=== PATIENT | male | born 1935 | race Caucasian/White ===

== ENCOUNTER 2017-03-09 23:07 | Inpatient (IN) | payer MEDICARE ==
[~2017-03-09] VITALS: Ht 175.3 cm; Wt 82.3 kg
[~2017-03-09 23:07] MED LIST: COUM4TAB7 PO; CRANCAP11 PO; HYDR-2768 PO; KCL10C PO; METO25 PO; NORV10TA PO; ST J81CH PO; TRAM50 PO; WARF2 PO
[2017-03-09 23:09] VITALS: PULSE 82; RESP 20
[2017-03-09] MEDS ORDERED: SODIUM CHLOR 0.9% 1000 ML INJ 1,000 ML IV SCH (23:11)
[2017-03-09] MEDS ORDERED: PANTOPRAZOLE INJ 80 MG in SODIUM CHLORIDE 0.9% INJ 35 ML IV ONE (23:11)
[2017-03-09] MEDS ORDERED: SODIUM CHLORIDE 0.9% FLUSH 10 ML FLUSH IVF PRN (23:15)
[2017-03-09] MEDS ORDERED: ONDANSETRON HCL 4 MG/2 ML VIAL IVP ONE (23:15)
--- NOTE | 2017-03-09 23:17 | PD ---
HPI Chief Complaint: hematemesis Time Seen by Provider: 23:11 Travel History International Travel<30 days: No Contact w/Intl Traveler<30days: No Traveled to known affect area: No History of Present Illness HPI The patient is a 81-year-old male who presents to the emergency department via EMS for hematemesis. The patient started vomiting blood approximately 5 PM per EMS report. 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 The patient notes multiple episodes of vomiting, mostly bright to dark colored blood with visible clots. He does complain of mild lightheadedness and dizziness, denies any chest pain, shortness breath, or abdominal pain. The patient's symptoms are moderate, possibly exacerbated by taking Coumadin, there are no current alleviating factors. EMS does note the patient was hypotensive with a systolic in the 80s prior to arrival, however, they were unable to obtain IV access. PFSH Past Medical History Hx Anticoagulant Therapy: Yes (WARFARIN) Atrial Fibrillation: Yes Cancer: No Cardiovascular Problems: Yes (HTN) Congestive Heart Failure: No Cerebrovascular Accident: Yes (TIA) Diabetes: No Endocrine: No Genitourinary: No Hypertension: Yes Immune Disorder: No Musculoskeletal: Yes Psychiatric: No Reproductive: No Respiratory: No Past Surgical History Other Surgery: Yes Social History Alcohol Use: No Tobacco Use: No Substance Use: No Allergies-Medications (Allergen,Severity, Reaction): Coded Allergies: No Known Allergies (Unverified Allergy, Unknown, 03/10/17) Reported Meds & Prescriptions Reported Meds & Active Scripts Active Metoprolol Tartrate 25 mg (Metoprolol Tartrate) 25 Mg Tab 12.5 Mg PO Q12 Reported Coumadin 4 mg (Warfarin Sodium) Warfarin Sodium 4 mg Tab 4 Mg PO DIRECTED S///S Coumadin (Warfarin Sod) 2 Mg Tab 2 Mg PO DIRECTED // Cranberry (Cranberry-Vitamin C-Vitamin E) Cap 1 Cap PO DAILY Ultram (Tramadol HCl) 50 Mg Tab 50 Mg PO Q6HR FOR PAIN Aspirin 81 mg chewable (Aspirin) 81 Mg Chw 162 Mg PO DAILY Hctz (Hydrochlorothiazide) 25 Mg Tab 25 Mg PO DAILY Norvasc (Amlodipine Besylate) 10 Mg Tab 10 Mg PO DAILY KCl 10 Meq Cap (Potassium Chloride) 10 Meq Capcr 15 Meq PO DIRECTED S/M/W/F Review of Systems Except as stated in HPI: all other systems reviewed are Neg General / Constitutional: No: Fever HENT: Positive: Lightheadedness Cardiovascular: No: Chest Pain or Discomfort Respiratory: No: Shortness of Breath Gastrointestinal: Positive: Nausea, Vomiting, Hematemesis, No: Abdominal Pain Musculoskeletal: Positive: Weakness Neurologic: Positive: Dizziness Physical Exam Narrative GENERAL: Awake, alert, pleasant 81-year-old male who appears his stated age and is in no acute respiratory distress. SKIN: Focused skin assessment warm/dry. HEAD: Atraumatic. Normocephalic. EYES: Pupils equal and round. No scleral icterus. No injection or drainage. ENT: Dry blood in both nares. Dry blood in the posterior oropharynx. NECK: Trachea midline. No JVD. CARDIOVASCULAR: Regular rate and rhythm. No murmur appreciated. RESPIRATORY: No accessory muscle use. Clear to auscultation. Breath sounds equal bilaterally. GASTROINTESTINAL: Abdomen soft, non-tender, nondistended. No rebound tenderness. MUSCULOSKELETAL: No obvious deformities. The right lower extremity is larger than the left lower extremity. The left wrist is flexed. NEUROLOGICAL: Awake and alert. No obvious cranial nerve deficits. The left wrist appears flexed with mild contracture. PSYCHIATRIC: Appropriate mood and affect; insight and judgment normal. Data Data Last Documented VS Vital Signs Date Time Temp Pulse Resp B/P (MAP) Pulse Ox O2 Delivery O2 Flow Rate FiO2 03/09/17 23:23 89 20 126/89 (101) 98 Room Air Orders Orders Complete Blood Count With Diff (03/09/17 23:11) Comprehensive Metabolic Panel (03/09/17 23:11) Prothrombin Time / Inr (Pt) (03/09/17 23:11) Act Partial Throm Time (Ptt) (03/09/17 23:11) Type And Screen (03/09/17 23:11) Chest, Single Ap (03/09/17 23:11) Ecg Monitoring (03/09/17 23:11) Iv Access Insert/Monitor (03/09/17 23:11) Ng Gastric Tube Insert/Monitor (03/09/17 23:11) Orthostatic Vital Signs (03/09/17 23:11) Oximetry (03/09/17 23:11) Ondansetron Inj (Zofran Inj) (03/09/17 23:15) Sodium Chlor 0.9% 1000 Ml Inj (Ns 1000 M (03/09/17 23:11) Sodium Chloride 0.9% Flush (Ns Flush) (03/09/17 23:15) Sodium Chloride 0.9... W/Pantoprazole In (03/09/17 23:11) Sodium Chloride 0.9... W/Pantoprazole In (03/09/17 23:11) Admit Order (Ed Use Only) (03/10/17 01:21) Labs Laboratory Tests Test 03/09/17 23:15 White Blood Count 15.8 TH/MM3 Red Blood Count 3.57 MIL/MM3 Hemoglobin 10.5 GM/DL Hematocrit 33.6 % Mean Corpuscular Volume 94.0 FL Mean Corpuscular Hemoglobin 29.4 PG Mean Corpuscular Hemoglobin Concent 31.3 % Red Cell Distribution Width 14.5 % Platelet Count 204 TH/MM3 Mean Platelet Volume 9.0 FL Neutrophils (%) (Auto) 78.9 % Lymphocytes (%) (Auto) 16.1 % Monocytes (%) (Auto) 4.7 % Eosinophils (%) (Auto) 0.1 % Basophils (%) (Auto) 0.2 % Neutrophils # (Auto) 12.4 TH/MM3 Lymphocytes # (Auto) 2.5 TH/MM3 Monocytes # (Auto) 0.7 TH/MM3 Eosinophils # (Auto) 0.0 TH/MM3 Basophils # (Auto) 0.0 TH/MM3 CBC Comment DIFF FINAL Differential Comment Prothrombin Time 30.3 SEC Prothromb Time International Ratio 2.6 RATIO Activated Partial Thromboplast Time 30.0 SEC Blood Urea Nitrogen 70 MG/DL Creatinine 1.69 MG/DL Random Glucose 196 MG/DL Total Protein 5.6 GM/DL Albumin 2.6 GM/DL Calcium Level 8.0 MG/DL Alkaline Phosphatase 53 U/L Aspartate Amino Transf (AST/SGOT) 16 U/L Alanine Aminotransferase (ALT/SGPT) 20 U/L Total Bilirubin 0.2 MG/DL Sodium Level 143 MEQ/L Potassium Level 4.3 MEQ/L Chloride Level 110 MEQ/L Carbon Dioxide Level 19.7 MEQ/L Anion Gap 13 MEQ/L Estimat Glomerular Filtration Rate 39 ML/MIN MDM Medical Decision Making Medical Screen Exam Complete: Yes Emergency Medical Condition: Yes Medical Record Reviewed: Yes Interpretation(s) Laboratory Tests Test 03/09/17 23:15 White Blood Count 15.8 TH/MM3 Red Blood Count 3.57 MIL/MM3 Hemoglobin 10.5 GM/DL Hematocrit 33.6 % Mean Corpuscular Volume 94.0 FL Mean Corpuscular Hemoglobin 29.4 PG Mean Corpuscular Hemoglobin Concent 31.3 % Red Cell Distribution Width 14.5 % Platelet Count 204 TH/MM3 Mean Platelet Volume 9.0 FL Neutrophils (%) (Auto) 78.9 % Lymphocytes (%) (Auto) 16.1 % Monocytes (%) (Auto) 4.7 % Eosinophils (%) (Auto) 0.1 % Basophils (%) (Auto) 0.2 % Neutrophils # (Auto) 12.4 TH/MM3 Lymphocytes # (Auto) 2.5 TH/MM3 Monocytes # (Auto) 0.7 TH/MM3 Eosinophils # (Auto) 0.0 TH/MM3 Basophils # (Auto) 0.0 TH/MM3 CBC Comment DIFF FINAL Differential Comment Prothrombin Time 30.3 SEC Prothromb Time International Ratio 2.6 RATIO Activated Partial Thromboplast Time 30.0 SEC Blood Urea Nitrogen 70 MG/DL Creatinine 1.69 MG/DL Random Glucose 196 MG/DL Total Protein 5.6 GM/DL Albumin 2.6 GM/DL Calcium Level 8.0 MG/DL Alkaline Phosphatase 53 U/L Aspartate Amino Transf (AST/SGOT) 16 U/L Alanine Aminotransferase (ALT/SGPT) 20 U/L Total Bilirubin 0.2 MG/DL Sodium Level 143 MEQ/L Potassium Level 4.3 MEQ/L Chloride Level 110 MEQ/L Carbon Dioxide Level 19.7 MEQ/L Anion Gap 13 MEQ/L Estimat Glomerular Filtration Rate 39 ML/MIN Differential Diagnosis Differential diagnosis includes hematemesis, peptic ulcer disease, gastritis, coagulopathy, Coumadin toxicity, symptomatic anemia, dehydration, acute renal failure. Narrative Course IV was established, labs are drawn and sent, and the patient was placed on cardiac telemetry monitoring and continuous pulse oximetry monitoring. Type and screen was sent to lab. 2 large-bore IVs were established. The patient was placed on IV fluids, Protonix bolus, and placed on a Protonix drip. NG tube was placed. The patient had minimal return out of the NG tube. The patient's vitals stabilized, systolic was in the 110s to 120s, heart rate was 60s to 70s. No further evidence of continuing bleeding to the NG tube. However , patient is on Coumadin and appeared to have a large amount of hematemesis prior to arrival. Therefore, the patient will be medicine medical service. He may then if it from evaluation by gastroenterology for possible endoscopy. Physician Communication Physician Communication I discussed the patient with Dr. Lott who agrees with admission. Diagnosis Primary Impression: Upper GI bleed Admitting Information Admitting Physician Requests: Admit Condition: Stable Travon Cheung MD Mar 09, 2017 23:17
[2017-03-09 23:23] VITALS: BP 126/89; PULSE 89; RESP 20; O2SAT 98
[2017-03-09] MEDS: PANTOPRAZOLE INJ 80 MG in SODIUM CHLORIDE 0.9% INJ 100 ML IV SCH (23:27)
[2017-03-09 23:33] LABS: AUTOMATED NEUTROPHIL # 12.4 TH/MM3 (1.8-7.7); BASOPHIL % 0.2 % (0.0-2.0); EOSINOPHIL % 0.1 % (0.0-4.0); HEMATOCRIT 33.6 % (39.0-51.0); HEMO FLAGS DIFF FINAL; LYMPH % 16.1 % (9.0-44.0); LYMPHOCYTE # 2.5 TH/MM3 (1.0-4.8); MEAN CORPUSCULAR HEMOGLOBIN 29.4 PG (27.0-34.0); MEAN CORPUSCULAR HGB CONC 31.3 % (32.0-36.0); MONO % 4.7 % (0.0-8.0); NEUT % 78.9 % (16.0-70.0); PLATELET COUNT 204 TH/MM3 (150-450); RED BLOOD COUNT 3.57 MIL/MM3 (4.50-5.90); RED CELL DISTRIBUTION WIDTH 14.5 % (11.6-17.2); WHITE BLOOD COUNT 15.8 TH/MM3 (4.0-11.0)
--- NOTE | 2017-03-09 23:43 | RADRPT ---
EXAM DATE/TIME: 03/09/2017 23:16 [facility] COMPARISON: CHEST SINGLE AP, April 11, 2014, 14:49. INDICATIONS : Shortness of breath. MEDICAL HISTORY : Hypertension. Stroke. SURGICAL HISTORY : None. ENCOUNTER: Initial ACUITY: 1 day PAIN SCORE: 0/10 LOCATION: Bilateral chest FINDINGS: A single view of the chest demonstrates the lungs to be symmetrically aerated without evidence of mas s, infiltrate or effusion. The cardiomediastinal contours are unremarkable. Osseous structures are intact. There is an NG tube in place with the tip directed into the stomach. CONCLUSION: No acute disease. Jeanmarie Nicole MD on March 09, 2017 at 23:39 Board Certified Radiologist. This report was verified electronically.
[2017-03-09 23:44] LABS: ALT (GPT) 20 U/L (12-78); ANION GAP 13 MEQ/L (5-15); AST (GOT) 16 U/L (15-37); BICARBONATE 19.7 MEQ/L (21.0-32.0); BLOOD UREA NITROGEN 70 MG/DL (7-18); CHLORIDE 110 MEQ/L (98-107); GLOMERULAR FILTRATION RATE 39 ML/MIN (>89); POTASSIUM 4.3 MEQ/L (3.5-5.1); SODIUM (NA) 143 MEQ/L (136-145)
[2017-03-09 23:46] LABS: ALKALINE PHOSPHATASE 53 U/L (45-117); TOTAL BILIRUBIN ADULT 0.2 MG/DL (0.2-1.0)
[2017-03-09 23:54] LABS: INTERNATIONAL NORMALIZED RATIO 2.6 RATIO; PROTHROMBIN TIME - PATIENT 30.3 SEC (9.8-11.6)
[2017-03-10] VITALS (16 sets, daily range): BP systolic 81–143; BP diastolic 49–82; PULSE 69–98; RESP 13–30; TEMP 95.8–98.3; O2SAT 97–100
[2017-03-10] MEDS ORDERED: SODIUM CHLORIDE 0.9% FLUSH 10 ML FLUSH IV FLUSH PRN (02:00)
[2017-03-10] MEDS ORDERED: MULTTAB67 PO (03:19)
[2017-03-10] MEDS ORDERED: LISI-515 PO (03:19)
[2017-03-10] MEDS ORDERED: CALC12502 (03:19)
[2017-03-10] MEDS ORDERED: TRAM50TA PO ×3 (03:19)
[2017-03-10] MEDS ORDERED: AMLO5TAB2 PO (03:19)
[2017-03-10] MEDS ORDERED: WARF-20 PO (03:19)
[2017-03-10] MEDS ORDERED: ASPI-516 CHEW (03:19)
[2017-03-10] MEDS ORDERED: CODOIL2 PO (03:19)
[2017-03-10] MEDS ORDERED: WARF4TAB51 PO (03:19)
[2017-03-10] MEDS ORDERED: CRANCAP2 PO (03:19)
[2017-03-10] MEDS ORDERED: FURO1TAB62 PO (03:19)
[2017-03-10] MEDS ORDERED: METO25TA3 PO (03:19)
[2017-03-10] MEDS ORDERED: POTA10CA PO (03:19)
[2017-03-10] MEDS ORDERED: GARL200T2 PO (03:19)
[2017-03-10] MEDS ORDERED: traMADol HCL 50 MG TAB PO PRN (03:45)
[2017-03-10] MEDS ORDERED: ONDANSETRON HCL 4 MG/2 ML VIAL IV PUSH PRN (04:00)
[2017-03-10] MEDS ORDERED: SODIUM CHLOR 0.9% 1000 ML INJ 1,000 ML IV ONE (04:15)
--- NOTE | 2017-03-10 04:29 | HHI.HP ---
[facility] Primary Care Physician Donnie Solis D.O. Admission Diagnosis upper GI bleed on Coumadin, anemia Diagnoses: Travel History International Travel<30 Days: No Contact w/Intl Traveler <30 Da: No Traveled to Known Affected Are: No History of Present Illness 81-year-old male with a past medical history significant for A. fib, anticoagulated on Coumadin, previous TIA, hypertension and degenerative disc disease presents to the emergency department for evaluation of hematemesis. The patient states he started vomiting blood approximately 5 PM. The patient reports multiple episodes of bloody emesis mostly dark with bloody clots. He complains of lightheadedness and dizziness. Denies any chest pain, shortness of breath or abdominal pain. H&H 10.5/33.6 on arrival to the emergency department. BUN/creatinine 70/1.69 (baseline 1.1). INR 2.6. Pulse 89, respiratory rate 20, BP 126/89, pulse ox 98% on room air. Review of Systems Denies fever or chills Denies blurry vision, otorrhea, rhinorrhea Denies sore throat and cough No chest pain, palpitations, shortness of breath No abdominal pain Denies constipation/diarrhea/nausea/vomiting Denies muscle pain/weakness No rashes Past Family Social History Past Medical History A. fib, anticoagulated on Coumadin History of TIA Hypertension Degenerative disc disease Past Surgical History Left knee replacement Ankle surgery in childhood Reported Medications Reported Meds & Active Scripts Active Metoprolol Tartrate 25 mg (Metoprolol Tartrate) 25 Mg Tab 12.5 Mg PO Q12 Reported Calcium (Oyster Shell) 500 Mg Calcium (1250 Mg) Tab Multiple Vitamin 1 Tab 1 Tab PO DAILY Cod Liver Oil 473 Ml Oil 600 Mg PO DAILY Garlic 200 Mg Tab 1,000 Mg PO DAILY Potassium Chloride ER (Potassium Chloride) 10 Meq Cap 10 Meq PO DAILY Lisinopril 20 Mg Tab 20 Mg PO DAILY Tramadol (Tramadol HCl) 50 Mg Tab 50 Mg PO Q4H PRN Tramadol (Tramadol HCl) 50 Mg Tab 50 Mg PO HS PRN Tramadol (Tramadol HCl) 50 Mg Tab 100 Mg PO DAILY PRN Amlodipine (Amlodipine Besylate) 5 Mg Tab 5 Mg PO HS Metoprolol Tartrate 25 Mg Tab 12.5 Mg PO BID Lasix (Furosemide) 20 Mg Tab 20 Mg PO DAILY Cranberry Urinary Comfort (Vitamins C & E) 1 Cap 1 Cap PO BID Warfarin 4 Mg Tab 4 Mg PO DAILY Warfarin 2 Mg Tab 2 Mg PO DAILY Aspirin 81 Mg Chew 81 Mg CHEW DAILY Coumadin 4 mg (Warfarin Sodium) Warfarin Sodium 4 mg Tab 4 Mg PO DIRECTED /// Coumadin (Warfarin Sod) 2 Mg Tab 2 Mg PO DIRECTED // Cranberry (Cranberry-Vitamin C-Vitamin E) Cap 1 Cap PO DAILY Ultram (Tramadol HCl) 50 Mg Tab 50 Mg PO Q6HR FOR PAIN Aspirin 81 mg chewable (Aspirin) 81 Mg Chw 162 Mg PO DAILY Hctz (Hydrochlorothiazide) 25 Mg Tab 25 Mg PO DAILY Norvasc (Amlodipine Besylate) 10 Mg Tab 10 Mg PO DAILY KCl 10 Meq Cap (Potassium Chloride) 10 Meq Capcr 15 Meq PO DIRECTED /// Allergies: Coded Allergies: No Known Allergies (Unverified Allergy, Unknown, 03/10/17) Family History No family history of coronary artery disease or diabetes mellitus Social History Quit smoking 50 years ago. No alcohol the past 3 years. Denies illicit drugs. Physical Exam Vital Signs Vital Signs Date Time Temp Pulse Resp B/P (MAP) Pulse Ox O2 Delivery O2 Flow Rate FiO2 03/10/17 02:44 03/09/17 23:23 89 20 126/89 (101) 98 Room Air 03/09/17 23:23 98 Room Air 03/09/17 23:09 82 20 Physical Exam GENERAL: male lying in bed in moderate distress SKIN: No rashes, ecchymoses or lesions. Cool and dry. HEAD: Atraumatic. Normocephalic. No temporal or scalp tenderness. EYES: Pupils equal round and reactive. Extraocular motions intact. No scleral icterus. No injection or drainage. ENT: Nose without bleeding, purulent drainage or septal hematoma. Throat without erythema, tonsillar hypertrophy or exudate. Uvula midline. Airway patent. NG tube in place draining zoe blood. NECK: Trachea midline. No JVD or lymphadenopathy. Supple, nontender, no meningeal signs. CARDIOVASCULAR: Regular rate and rhythm without murmurs, gallops, or rubs. RESPIRATORY: Clear to auscultation. Breath sounds equal bilaterally. No wheezes , rales, or rhonchi. GASTROINTESTINAL: Abdomen soft, non-tender, nondistended. No hepato-splenomegaly , or palpable masses. No guarding. MUSCULOSKELETAL: Extremities without clubbing, cyanosis, or edema. No joint tenderness, effusion, or edema noted. No calf tenderness. Negative Homans sign bilaterally. NEUROLOGICAL: Awake and alert. Cranial nerves II through XII intact. Motor and sensory grossly within normal limits. Normal speech. Laboratory Laboratory Tests Test 03/09/17 23:15 White Blood Count 15.8 Red Blood Count 3.57 Hemoglobin 10.5 Hematocrit 33.6 Mean Corpuscular Volume 94.0 Mean Corpuscular Hemoglobin 29.4 Mean Corpuscular Hemoglobin Concent 31.3 Red Cell Distribution Width 14.5 Platelet Count 204 Mean Platelet Volume 9.0 Neutrophils (%) (Auto) 78.9 Lymphocytes (%) (Auto) 16.1 Monocytes (%) (Auto) 4.7 Eosinophils (%) (Auto) 0.1 Basophils (%) (Auto) 0.2 Neutrophils # (Auto) 12.4 Lymphocytes # (Auto) 2.5 Monocytes # (Auto) 0.7 Eosinophils # (Auto) 0.0 Basophils # (Auto) 0.0 CBC Comment DIFF FINAL Differential Comment Prothrombin Time 30.3 Prothromb Time International Ratio 2.6 Activated Partial Thromboplast Time 30.0 Blood Urea Nitrogen 70 Creatinine 1.69 Random Glucose 196 Total Protein 5.6 Albumin 2.6 Calcium Level 8.0 Alkaline Phosphatase 53 Aspartate Amino Transf (AST/SGOT) 16 Alanine Aminotransferase (ALT/SGPT) 20 Total Bilirubin 0.2 Sodium Level 143 Potassium Level 4.3 Chloride Level 110 Carbon Dioxide Level 19.7 Anion Gap 13 Estimat Glomerular Filtration Rate 39 Result Diagram: 03/09/17231403/09/172314 Caprini VTE Risk Assessment Caprini VTE Risk Assessment: Mod/High Risk (score >= 2) Caprini Risk Assessment Model Point Value = 1 Point Value = 2 Point Value = 3 Point Value = 5 Age 41-60 Minor surgery BMI > 25 kg/m2 Swollen legs Varicose veins or History of unexplained or recurrent spontaneous Oral contraceptives or hormone replacement Sepsis (< 1 month) Serious lung disease, including pneumonia (< 1 month) Abnormal pulmonary function Acute myocardial infarction Congestive heart failure (< 1 month) History of inflammatory bowel disease Medical patient at bed rest Age 61-74 Arthroscopic surgery Major open surgery (> 45 min) Laparoscopic surgery (> 45 min) Malignancy Confined to bed (> 72 hours) Immobilizing plaster cast Central venous access Age >= 75 History of VTE Family history of VTE Factor V Leiden Prothrombin [id number] Lupus anticoagulant Anticardiolipin antibodies Elevated serum homocysteine Heparin-induced thrombocytopenia Other congenital or acquired thrombophilia Stroke (< 1 month) Elective arthroplasty Hip, pelvis, or leg fracture Acute spinal cord injury (< 1 month) Prophylaxis Regimen Total Risk Factor Score Risk Level Prophylaxis Regimen 0-1 Low Early ambulation 2 Moderate Order ONE of the following: *Sequential Compression Device (SCD) *Heparin 5000 units SQ BID 3-4 Higher Order ONE of the following medications: *Heparin 5000 units SQ TID *Enoxaparin/Lovenox 40 mg SQ daily (WT < 150 kg, CrCl > 30 mL/min) *Enoxaparin/Lovenox 30 mg SQ daily (WT < 150 kg, CrCl > 10-29 mL/min) *Enoxaparin/Lovenox 30 mg SQ BID (WT < 150 kg, CrCl > 30 mL/min) AND/OR *Sequential Compression Device (SCD) 5 or more Highest Order ONE of the following medications: *Heparin 5000 units SQ TID (Preferred with Epidurals) *Enoxaparin/Lovenox 40 mg SQ daily (WT < 150 kg, CrCl > 30 mL/min) *Enoxaparin/Lovenox 30 mg SQ daily (WT < 150 kg, CrCl > 10-29 mL/min) *Enoxaparin/Lovenox 30 mg SQ BID (WT < 150 kg, CrCl > 30 mL/min) AND *Sequential Compression Device (SCD) Assessment and Plan Assessment and Plan 81-year-old male with a past medical history for atrial fibrillation, anticoagulated on Coumadin, history of TIA and hypertension presents with upper GI bleed. 1. Upper GI bleed/hematemesis Patient anticoagulated on Coumadin, INR 2.6 Nothing by mouth Protonix drip Gastroenterology consulted, appreciate recommendations Serial H&H Transfuse when necessary 2. Atrial fibrillation Holding Coumadin for active GI bleed Continue home medications 3. Hypertension Continue home medications 4. CHF Last echo done 04/13/14 showed an EF of 35-40% Gentle IV fluid hydration Monitor for signs of volume overload 5. CHELY BUN/creatinine 70/1.69 Baseline 1.1 IV fluid hydration Follow-up BMP FEN NPO NS at 75 cc/hr Electrolytes: Monitor and replete when necessary Holding pharmacologic anticoagulation secondary to upper GI bleed Case discussed with ER physician at length Patient's blood pressure found to be 70s/40s. He complains of dizziness and lightheadedness. Bolus 1 L normal saline, stat H&H. Follow closely. Transfuse prn. Physician Certification 2 Midnight Certification Type: Admission for Inpatient Services Order for Inpatient Services The services are ordered in accordance with Medicare regulations or non- Medicare payer requirements, as applicable. In the case of services not specified as inpatient-only, they are appropriately provided as inpatient services in accordance with the 2-midnight benchmark. Estimated LOS (days): 2 2 days is the estimated time the patient will need to remain in the hospital, assuming treatment plan goals are met and no additional complications. Post-Hospital Plan: Not yet determined Anastasiya Lott MD Mar 10, 2017 04:29
[2017-03-10] MEDS ORDERED: SODIUM CHLOR 0.9% 1000 ML INJ 1,000 ML IV SCH (04:30)
[2017-03-10 05:02] LABS: HEMATOCRIT 23.4 % (39.0-51.0); REVIEW FLAG FINAL
[2017-03-10] MEDS ORDERED: FUROSEMIDE 20 MG/2 ML VIAL IV PUSH ONE (05:30)
[2017-03-10] MEDS ORDERED: SODIUM CHLOR 0.9% 250 ML INJ 250 ML IV ONE ×2 (05:30→07:15)
[2017-03-10 06:21] LABS: BICARBONATE 25.5 MEQ/L (21.0-32.0); POTASSIUM 4.7 MEQ/L (3.5-5.1)
[2017-03-10 06:35] LABS: CALCIUM-PROTEIN CORRECTED 8.5 MG/DL (8.5-10.1)
--- NOTE | 2017-03-10 07:02 | PD.CONS ---
HPI History of Present Illness This is a 81 year old male who presented to the emergency room for evaluation of hematemesis. He has a history of previous CVA and is currently on chronic anticoagulation with Coumadin. He reports that he takes his medications ( including Coumadin) last night around 5 PM and then went to bed. Around 5:30 he woke up with a small amount of blood in his mouth. Shortly after he started having nausea and vomiting consisting of large amounts of dark red blood and blood clots. He had some associated lower abdominal cramping as though he needed to move his bowels, but states this has since subsided. He has not had any melena or hematochezia. He does have occasional heartburn and reflux and takes Tums as needed. 911 was called and he was brought to the emergency room for further evaluation on the way to the hospital he did have another 3 episodes of hematemesis consisting of large amounts of dark red blood and blood clots. He denies any prior history of GI bleeding, liver disease or cirrhosis, or any history of peptic ulcer disease. He has never had an EGD or colonoscopy. On admission his H&H was 10.5/33.6 and this decreased to 7.5/23.4 at 0445. INR was noted to be 2.6. (Miracle Edgar) PFSH Past Medical History Atrial fibrillation on Coumadin Hx TIA Hypertension Degenerative disc disease Chronic kidney disease Left sided weakness since (born at 7 months) Past Surgical History Left knee replacement Ankle surgery in childhood (Miracle Edgar) Coded Allergies: No Known Allergies (Unverified Allergy, Unknown, 03/10/17) Medications Allergies Coded Allergies Type Severity Reaction Last Updated Verified No Known Allergies Allergy Unknown 03/10/17 No Active Scripts Medications Dose Route/Sig Max Daily Dose Days Date Category Dose Instructions Calcium (Oyster Shell) 500 Mg Calcium (1250 Mg) Tab 03/10/17 Reported Multiple Vitamin 1 Tab 1 Tab PO DAILY 03/10/17 Reported Cod Liver Oil 473 Ml Oil 600 Mg PO DAILY 03/10/17 Reported Garlic 200 Mg Tab 1,000 Mg PO DAILY 03/10/17 Reported Potassium Chloride ER (Potassium Chloride) 10 Meq Cap 10 Meq PO DAILY 03/10/17 Reported Lisinopril 20 Mg Tab 20 Mg PO DAILY 03/10/17 Reported Tramadol (Tramadol HCl) 50 Mg Tab 50 Mg PO Q4H PRN 03/10/17 Reported Tramadol (Tramadol HCl) 50 Mg Tab 50 Mg PO HS PRN 03/10/17 Reported Tramadol (Tramadol HCl) 50 Mg Tab 100 Mg PO DAILY PRN 03/10/17 Reported Amlodipine (Amlodipine Besylate) 5 Mg Tab 5 Mg PO HS 03/10/17 Reported Metoprolol Tartrate 25 Mg Tab 12.5 Mg PO BID 03/10/17 Reported Lasix (Furosemide) 20 Mg Tab 20 Mg PO DAILY 03/10/17 Reported Cranberry Urinary Comfort (Vitamins C & E) 1 Cap 1 Cap PO BID 03/10/17 Reported Warfarin 4 Mg Tab 4 Mg PO DAILY 03/10/17 Reported Warfarin 2 Mg Tab 2 Mg PO DAILY 03/10/17 Reported Aspirin 81 Mg Chew 81 Mg CHEW DAILY 03/10/17 Reported Coumadin 4 mg (Warfarin Sodium) Warfarin Sodium 4 mg Tab 4 Mg PO DIRECTED 11/05/15 Reported S/T//S Coumadin (Warfarin Sod) 2 Mg Tab 2 Mg PO DIRECTED 11/05/15 Reported M/W/F Cranberry (Cranberry-Vitamin C-Vitamin E) Cap 1 Cap PO DAILY 11/05/15 Reported Ultram (Tramadol HCl) 50 Mg Tab 50 Mg PO Q6HR 11/05/15 Reported FOR PAIN Metoprolol Tartrate 25 mg (Metoprolol Tartrate) 25 Mg Tab 12.5 Mg PO Q12 04/13/14 Rx Aspirin 81 mg chewable (Aspirin) 81 Mg Chw 162 Mg PO DAILY 04/11/14 Reported Hctz (Hydrochlorothiazide) 25 Mg Tab 25 Mg PO DAILY 04/11/14 Reported Norvasc (Amlodipine Besylate) 10 Mg Tab 10 Mg PO DAILY 04/11/14 Reported KCl 10 Meq Cap (Potassium Chloride) 10 Meq Capcr 15 Meq PO DIRECTED 04/11/14 Reported S/M/W/F Family History No family history of coronary artery disease or diabetes mellitus Social History Quit smoking 50 years ago. No alcohol the past 3 years. Denies illicit drugs. (Miracle Edgar) Review of Systems Constitutional: COMPLAINS OF: Fatigue, DENIES: Fever, Chills Respiratory: DENIES: Cough Cardiovascular: DENIES: Chest pain Gastrointestinal: COMPLAINS OF: Abdominal pain, Nausea, Vomiting, Heartburn, Hematemesis, DENIES: Black stools, Bloody stools, Constipation, Diarrhea Musculoskeletal: DENIES: Joint pain Neurologic: COMPLAINS OF: Localized weakness, DENIES: Headache Psychiatric: DENIES: Confusion (EdgarMiracle Finley LLOYD) GI Exam Vitals I&O Vital Signs Date Time Temp Pulse Resp B/P (MAP) Pulse Ox O2 Delivery O2 Flow Rate FiO2 03/10/17 06:45 95.8 71 18 103/51 98 03/10/17 05:16 109/53 (71) 03/10/17 04:10 81/49 (60) 03/10/17 03:00 96.7 69 18 88/62 (71) 97 03/10/17 03:00 Room Air 03/10/17 02:44 03/09/17 23:23 89 20 126/89 (101) 98 Room Air 03/09/17 23:23 98 Room Air 03/09/17 23:09 82 20 I/O 03/09/17 03/09/17 03/09/17 03/10/17 03/10/17 03/10/17 07:00 15:00 23:00 07:00 15:00 23:00 Intake Total 2111 ml Balance 2111 ml Intake Oral 0 ml IV Total 2101 ml Blood Product IV Normal Saline Flush 10 ml # Voids 0 # Bowel Movements 0 Imaging Last Impressions Chest X-Ray 03/09/17 2311 Signed Impressions: Service Date/Time: Thursday, March 09, 2017 23:16 - CONCLUSION: No acute disease. Jeanmarie Nicole MD Laboratory Test 03/09/17 23:15 03/10/17 04:45 03/10/17 05:39 White Blood Count 15.8 TH/MM3 Red Blood Count 3.57 MIL/MM3 Hemoglobin 10.5 GM/DL 7.5 GM/DL Hematocrit 33.6 % 23.4 % Mean Corpuscular Volume 94.0 FL Mean Corpuscular Hemoglobin 29.4 PG Mean Corpuscular Hemoglobin Concent 31.3 % Red Cell Distribution Width 14.5 % Platelet Count 204 TH/MM3 Mean Platelet Volume 9.0 FL Neutrophils (%) (Auto) 78.9 % Lymphocytes (%) (Auto) 16.1 % Monocytes (%) (Auto) 4.7 % Eosinophils (%) (Auto) 0.1 % Basophils (%) (Auto) 0.2 % Neutrophils # (Auto) 12.4 TH/MM3 Lymphocytes # (Auto) 2.5 TH/MM3 Monocytes # (Auto) 0.7 TH/MM3 Eosinophils # (Auto) 0.0 TH/MM3 Basophils # (Auto) 0.0 TH/MM3 CBC Comment DIFF FINAL Differential Comment Prothrombin Time 30.3 SEC Prothromb Time International Ratio 2.6 RATIO Activated Partial Thromboplast Time 30.0 SEC Blood Urea Nitrogen 70 MG/DL 72 MG/DL Creatinine 1.69 MG/DL 1.67 MG/DL Random Glucose 196 MG/DL 148 MG/DL Total Protein 5.6 GM/DL 4.5 GM/DL Albumin 2.6 GM/DL Calcium Level 8.0 MG/DL 7.1 MG/DL Alkaline Phosphatase 53 U/L Aspartate Amino Transf (AST/SGOT) 16 U/L Alanine Aminotransferase (ALT/SGPT) 20 U/L Total Bilirubin 0.2 MG/DL Sodium Level 143 MEQ/L 147 MEQ/L Potassium Level 4.3 MEQ/L 4.7 MEQ/L Chloride Level 110 MEQ/L 113 MEQ/L Carbon Dioxide Level 19.7 MEQ/L 25.5 MEQ/L Anion Gap 13 MEQ/L 9 MEQ/L Estimat Glomerular Filtration Rate 39 ML/MIN 39 ML/MIN Protein Corrected Calcium 8.5 MG/DL Physical Examination HEENT: Normocephalic; atraumatic; no jaundice CHEST: CTA CARDIAC: Irregular. Rate controlled. ABDOMEN: Soft, nondistended, nontender; no hepatosplenomegaly; bowel sounds are present in all four quadrants. NGT to LIWS with red blood/clots. EXTREMITIES: Left sided weakness/contractures SKIN: Generalized pallor [employer]ER: Alert and oriented times three. (Miracle Edgar) Assessment and Plan Plan ASSESSMENT: - Upper GI bleed, hematemesis. Pt on coumadin for afib (last took 03/09 at 5pm) . Started having nausea/vomiting with large amounts of red blood and clots last night at 5pm. He had about 3 episodes at home and 3 in the ambulance. 10.5/33.6----> 7.5/23.4. INR 2.6. 2 units of PRBC ordered. NGT to LIWS. He has been hypotensive overnight. HR controlled. Protonix Gtt. - Anemia, acute blood loss. 10.5/33.6----> 7.5/23.4. INR 2.6. On #1/2 PRBC. - Coagulopathy, chronic anticoagulation with Coumadin. Took his coumadin last 03/09 at 5pm. INR 2.6. Give 2 units of FFP and Vitamin K. - CHELY, secondary to blood loss. Creat 1.67. - Atrial fibrillation with hx CVA/TIA. On Coumadin at home. Rate controlled - HTN, Degenerative disc disease, recurrent UTIs. per attending. 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 PLAN: - Transfer to unit for closer observation - Plan for EGD today - Nothing by mouth - NG tube to LIWS - Protonix drip - Hold coumadin - 2 units FFP stat - Vitamin K 10mg sq x 1 - Agree with transfusion (2 units ordered- on first unit) - Monitor H&H - CBC, BMP in a.m. - Notify GI of room number once patient transferred - Notify GI of any change in status - Supportive care - Further recommendations to follow based on results of above - Pt seen and examined by Dr. Peters and myself and this note is written on her behalf (Miracle Edgar) Physician Comments seen, examined agree with above (Ellen Peters MD) Miracle Edgar Mar 10, 2017 07:01 Ellen Peters MD Mar 10, 2017 10:16
[2017-03-10] MEDS ORDERED: PHYTONADIONE 10 MG/ML VIAL SQ ONE (07:15)
[2017-03-10] MEDS ORDERED: METOPROLOL TARTRATE 25 MG TAB PO SCH (09:00)
[2017-03-10] MEDS ORDERED: FUROSEMIDE 20 MG TAB PO SCH (09:00)
[2017-03-10] MEDS ORDERED: POTASSIUM CHLORIDE 10 MEQ CAP PO SCH (09:00)
[2017-03-10] MEDS: PANTOPRAZOLE INJ 80 MG in SODIUM CHLORIDE 0.9% INJ 100 ML IV SCH ×2 (09:11→14:44)
[2017-03-10] MEDS ORDERED: diphenhydrAMINE HCL 50 MG/ML VIAL ONE ×2 (09:59→10:01)
[2017-03-10] MEDS ORDERED: CHLORHEXIDINE GLUCONATE 2 % 1 PACK (2 CLOTHS) TOPICAL PRN (10:00)
[2017-03-10] MEDS ORDERED: POVIDONE IODINE 5% (ANTISEPSIS KIT) 4 APPLICATIONS EACH NARE PRN (10:00)
[2017-03-10] MEDS ORDERED: LACTATED RINGER'S 1000 ML IV PRN (10:00)
[2017-03-10] MEDS ORDERED: METOPROLOL TARTRATE 25 MG TAB PO PRN (10:00)
[2017-03-10] MEDS ORDERED: SODIUM CHLORID 0.9% 500 ML IV PRN (10:00)
--- NOTE | 2017-03-10 10:04 | GIPROC ---
[facility] [address] [facility]. [facility], [address] EGD PROCEDURE REPORT EXAM DATE: 03/10/2017 PATIENT NAME: Burak Weeks MR #: [id number] BIRTHDATE: 1935 ATTENDING: Ellen Peters MD ORDER #: [id number] TELEPHONIC NURSE CASE MANAGER: Felisa Elaine and Nael Hernandez STATUS: inpatient INDICATIONS: The patient is a 81 yr old male here for an EGD due to GI BLEEDING PROCEDURE PERFORMED: EGD w/ biopsy MEDICATIONS: None and Per Anesthesia. TOPICAL ANESTHETIC: none CONSENT: The patient understands the risks and benefits of the procedure and understands that these risks include, but are not limited to: sedation, allergic reaction, infection, perforation and/or bleeding. Alternative means of evaluation and treatment include, among others: physical exam, x-rays, and/or surgical intervention. The patient elects to proceed with this endoscopic procedure. medical equipment was checked for proper function. Hand hygiene and appropriate measures for infection prevention was taken. After the risks, benefits and alternatives of the procedure were thoroughly explained, Informed consent was verified, confirmed and timeout was successfully executed by the treatment team. The patient was anesthetized with topical anesthesia and the Pentax [id number] endoscope was introduced through the mouth and advanced to the second portion of the duodenum. Retroflexed views revealed a hiatal hernia The gastroscope was then slowly withdrawn and removed. Gastritis antrum-biopsy NGT trauma in stomach esophagitis distal esophagus-biopsy. ADVERSE EVENTS: There were no complications. IMPRESSIONS: 1. Gastritis antrum-biopsy NGT trauma in stomach esophagitis distal esophagus-biopsy 2. Retroflexed views revealed a hiatal hernia RECOMMENDATIONS: 1. Await biopsy results. Biopsy results will not be ready for 7-10 days. If you don't hear from us in two weeks, call our office for biopsy results. 2. Anti-reflux regimen 3. Continue PPI 4. Clear liquid diet ppi avoid nsaids monitor hb/ht transfuse prn rash on skin noted during PRBC infusion-, no other symptoms -blood stopped-, Benadryl give, blood bank notofied, work-up ordere as per protocol PATIENT CONDITION: stable DISPOSITION: Inpatient REPEAT EXAM: Return 6 weeks EGD Ellen Peters MD eSigned: Ellen Peters MD 03/10/2017 10:04 AM cc: PATIENT NAME: Burak Weeks MR#: [id number]
[2017-03-10] MEDS: SODIUM CHLORIDE 0.9% FLUSH 10 ML FLUSH IV FLUSH SCH ×2 (10:15→21:00)
[2017-03-10] MEDS ORDERED: DO NOT ADM ANY ANTICOAGULANT DRUGS PRN (10:16)
[2017-03-10] MEDS ORDERED: DIATRIZOATE MEGLUM/DIATRIZOATE SOD 9 ML CUP PO ONE ×2 (12:30→21:45)
--- NOTE | 2017-03-10 13:29 | EKG ---
Date Performed: 03/10/2017 Time Performed: 08:28:32 PTAGE: 81 years EKG: Sinus rhythm LEFT BUNDLE BRANCH BLOCK ABNORMAL ECG PREVIOUS TRACING : 04/11/2014 14.46 Compared to prior electrocardiogram, Sinus rhythm has repla annette atrial fibrillation. DOCTOR: Torsten Wall Interpretating Date/Time 03/10/2017 13:27:38
[2017-03-10 15:11] LABS: AUTOMATED NEUTROPHIL # 13.8 TH/MM3 (1.8-7.7); HEMO FLAGS DIFF FINAL; LYMPH % 10.4 % (9.0-44.0); LYMPHOCYTE # 1.8 TH/MM3 (1.0-4.8); MEAN CELL VOLUME 89.7 FL (80.0-100.0); MEAN CORPUSCULAR HGB CONC 32.3 % (32.0-36.0); MONO % 9.5 % (0.0-8.0); NEUT % 80.1 % (16.0-70.0); PLATELET COUNT 131 TH/MM3 (150-450); RED BLOOD COUNT 2.78 MIL/MM3 (4.50-5.90); RED CELL DISTRIBUTION WIDTH 15.3 % (11.6-17.2); WHITE BLOOD COUNT 17.2 TH/MM3 (4.0-11.0)
[2017-03-10 15:12] LABS: INTERNATIONAL NORMALIZED RATIO 1.8 RATIO
[2017-03-10 15:22] LABS: ALT (GPT) 15 U/L (12-78); AST (GOT) 16 U/L (15-37); BICARBONATE 21.4 MEQ/L (21.0-32.0); BLOOD UREA NITROGEN 63 MG/DL (7-18); GLOMERULAR FILTRATION RATE 47 ML/MIN (>89)
[2017-03-10 16:54] LABS: ANION GAP 12 MEQ/L (5-15); CHLORIDE 119 MEQ/L (98-107); LDH SERUM 175 U/L (87-241); POTASSIUM 4.1 MEQ/L (3.5-5.1); SODIUM (NA) 152 MEQ/L (136-145)
[2017-03-10 16:56] LABS: ALKALINE PHOSPHATASE 38 U/L (45-117); TOTAL BILIRUBIN ADULT 0.3 MG/DL (0.2-1.0)
[2017-03-10 20:51] LABS: HEMATOCRIT 23.2 % (39.0-51.0); REVIEW FLAG FINAL
[2017-03-10] MEDS ORDERED: amLODIPine BESYLATE 5 MG TAB PO SCH (21:00)
[2017-03-11] VITALS (9 sets, daily range): BP systolic 118–170; BP diastolic 55–68; PULSE 61–104; RESP 18–21; TEMP 97.7–99.1; O2SAT 93–98
[2017-03-11] MEDS: PANTOPRAZOLE INJ 80 MG in SODIUM CHLORIDE 0.9% INJ 100 ML IV SCH ×2 (05:10→18:04)
--- NOTE | 2017-03-11 05:20 | RADRPT ---
EXAM DATE/TIME: 03/11/2017 04:42 [facility] COMPARISON: No previous studies available for comparison. INDICATIONS : Abdominal pain with hematemesis. ORAL CONTRAST: Prescribed oral contrast ingested. RADIATION DOSE: 15.35 CTDIvol (mGy) MEDICAL HISTORY : Hypertension. TIA. A Fib. SURGICAL HISTORY : None. Left hip replacement. ENCOUNTER: Initial ACUITY: 2 days PAIN SCALE: 7/10 LOCATION: All quadrants. TECHNIQUE: Volumetric scanning of the abdomen and pelvis was performed. Using automated exposure control and ad justment of the mA and/or kV according to patient size, radiation dose was kept as low as reasonably achievable to obtain optimal diagnostic quality images. DICOM format image data is available electro nically for review and comparison. FINDINGS: LOWER LUNGS: The visualized lower lungs are clear. LIVER: Homogeneous density without lesion. There is no dilation of the biliary tree. No calcified gallston es. SPLEEN: Normal size without lesion. PANCREAS: Within normal limits. KIDNEYS: Normal in size and shape. There is no mass, stone, or hydronephrosis. ADRENAL GLANDS: Within normal limits. VASCULAR: There is no aortic aneurysm. BOWEL/MESENTERY: There are colonic diverticula being most numerous in the sigmoid region. Significant surrounding infl ammatory change is not seen. There is questionable thickening of the transverse and descending colon. Some of this may be secondary to lack of distention. Some degree of colitis in these regions could a lso be considered. Surrounding inflammatory change is not seen in these regions. ABDOMINAL WALL: Within normal limits. RETROPERITONEUM: There is no lymphadenopathy. BLADDER: No wall thickening or mass. REPRODUCTIVE: Within normal limits. INGUINAL: There is no lymphadenopathy or hernia. MUSCULOSKELETAL: There is degenerative change in the lumbar spine. There is a left hip prosthesis. CONCLUSION: 1. Thickening versus lack of distention seen in the transverse and descending colon. Colitis in these regions could be considered. 2. Colonic diverticula with hypertrophy. Significant surrounding inflammatory change is not seen. Jeanmarie Nicole MD on March 11, 2017 at 5:14 Board Certified Radiologist. This report was verified electronically.
[2017-03-11 05:28] LABS: AUTOMATED NEUTROPHIL # 10.8 TH/MM3 (1.8-7.7); BASOPHIL % 0.2 % (0.0-2.0); EOSINOPHIL % 0.3 % (0.0-4.0); HEMATOCRIT 22.8 % (39.0-51.0); HEMO FLAGS DIFF FINAL; INTERNATIONAL NORMALIZED RATIO 1.7 RATIO; LYMPHOCYTE # 1.6 TH/MM3 (1.0-4.8); MEAN CELL VOLUME 89.6 FL (80.0-100.0); MEAN CORPUSCULAR HEMOGLOBIN 30.1 PG (27.0-34.0); MEAN CORPUSCULAR HGB CONC 33.5 % (32.0-36.0); MONO % 8.3 % (0.0-8.0); NEUT % 79.2 % (16.0-70.0); PLATELET COUNT 119 TH/MM3 (150-450); PROTHROMBIN TIME - PATIENT 19.7 SEC (9.8-11.6); RED BLOOD COUNT 2.54 MIL/MM3 (4.50-5.90); RED CELL DISTRIBUTION WIDTH 15.6 % (11.6-17.2); WHITE BLOOD COUNT 13.6 TH/MM3 (4.0-11.0)
[2017-03-11 05:38] LABS: POTASSIUM 3.7 MEQ/L (3.5-5.1)
[2017-03-11 06:04] LABS: CALCIUM-PROTEIN CORRECTED 8.5 MG/DL (8.5-10.1)
[2017-03-11] MEDS: SODIUM CHLORIDE 0.9% FLUSH 10 ML FLUSH IV FLUSH SCH ×2 (09:00→21:00)
[2017-03-11 19:47] LABS: AUTOMATED NEUTROPHIL # 6.3 TH/MM3 (1.8-7.7); BASOPHIL % 0.3 % (0.0-2.0); EOSINOPHIL # 0.1 TH/MM3 (0-0.4); EOSINOPHIL % 0.8 % (0.0-4.0); LYMPH % 15.5 % (9.0-44.0); LYMPHOCYTE # 1.3 TH/MM3 (1.0-4.8); MEAN CELL VOLUME 90.7 FL (80.0-100.0); MEAN CORPUSCULAR HEMOGLOBIN 29.8 PG (27.0-34.0); MEAN CORPUSCULAR HGB CONC 32.8 % (32.0-36.0); MONO % 7.3 % (0.0-8.0); NEUT % 76.1 % (16.0-70.0); PLATELET COUNT 110 TH/MM3 (150-450); RED BLOOD COUNT 2.15 MIL/MM3 (4.50-5.90); RED CELL DISTRIBUTION WIDTH 15.6 % (11.6-17.2); WHITE BLOOD COUNT 8.3 TH/MM3 (4.0-11.0)
[2017-03-11 19:52] LABS: HEMO FLAGS DIFF FINAL
[2017-03-11 19:54] LABS: HEMATOCRIT 19.5 % (39.0-51.0)
--- NOTE | 2017-03-11 20:12 | PD.CONS ---
[facility] Service Critical Care Medicine Consult Requested By Primary Care Physician Donnie Solis D.O. History of Present Illness 81-year-old male with a past medical history significant for A. fib, anticoagulated on Coumadin, previous TIA, hypertension and degenerative disc disease presents to the emergency department for evaluation of hematemesis. He underwent EGD by gastroenterology with findings of hiatal hernia and gastritis. Recommendations were to admit to ICU for observation overnight with anti- reflex medications. The biopsy results that was performed during the procedure will be discussed with the patient as an outpatient in 2 weeks. Review of Systems Constitutional: DENIES: Diaphoretic episodes, Fatigue, Fever, Weight gain, Weight loss, Chills, Dizziness, Change in appetite, Night Sweats Endocrine: DENIES: Heat/cold intolerance, Polydipsia, Polyuria, Polyphagia Eyes: DENIES: Blurred vision, Diplopia, Eye inflammation, Eye pain, Vision loss , Photosensitivity, Double Vision Ears, nose, mouth, throat: DENIES: Tinnitus, Hearing loss, Vertigo, Nasal discharge, Oral lesions, Throat pain, Hoarseness, Ear Pain, Running Nose, Epistaxis, Sinus Pain, Toothache, Odynophagia Respiratory: DENIES: Apneas, Cough, Snoring, Wheezing, Hemoptysis, Sputum production, Shortness of breath Cardiovascular: DENIES: Chest pain, Palpitations, Syncope, Dyspnea on Exertion , PND, Lower Extremity Edema, Orthopnea, Claudication Gastrointestinal: COMPLAINS OF: Vomiting, DENIES: Abdominal pain, Black stools , Bloody stools, Constipation, Diarrhea, Nausea, Difficulty Swallowing, Anorexia Genitourinary: DENIES: Sexual dysfunction, Urinary frequency, Urinary incontinence, Urgency, Hematuria, Dysuria, Nocturia, Penile Discharge, Testicular Pain, Testicular Swelling Musculoskeletal: DENIES: Joint pain, Muscle aches, Stiffness, Joint Swelling, Back pain, Neck pain Integumentary: DENIES: Abnormal pigmentation, Nail changes, Pruritus, Rash Hematologic/lymphatic: DENIES: Bruising, Lymphadenopathy Immunologic/allergic: DENIES: Eczema, Urticaria Neurologic: DENIES: Abnormal gait, Headache, Localized weakness, Paresthesias, Seizures, Speech Problems, Tremor, Poor Balance Psychiatric: DENIES: Anxiety, Confusion, Mood changes, Depression, Hallucinations, Agitation, Suicidal Ideation, Homicidal Ideation, Delusions Past Family Social History Allergies: Coded Allergies: No Known Allergies (Unverified Allergy, Unknown, 03/10/17) Past Medical History A. fib, anticoagulated on Coumadin History of TIA Hypertension Degenerative disc disease Past Surgical History Left knee replacement Ankle surgery in childhood Reported Medications Reported Meds & Active Scripts Active Metoprolol Tartrate 25 mg (Metoprolol Tartrate) 25 Mg Tab 12.5 Mg PO Q12 Reported Calcium (Oyster Shell) 500 Mg Calcium (1250 Mg) Tab Multiple Vitamin 1 Tab 1 Tab PO DAILY Cod Liver Oil 473 Ml Oil 600 Mg PO DAILY Garlic 200 Mg Tab 1,000 Mg PO DAILY Potassium Chloride ER (Potassium Chloride) 10 Meq Cap 10 Meq PO DAILY Lisinopril 20 Mg Tab 20 Mg PO DAILY Tramadol (Tramadol HCl) 50 Mg Tab 50 Mg PO Q4H PRN Tramadol (Tramadol HCl) 50 Mg Tab 50 Mg PO HS PRN Tramadol (Tramadol HCl) 50 Mg Tab 100 Mg PO DAILY PRN Amlodipine (Amlodipine Besylate) 5 Mg Tab 5 Mg PO HS Metoprolol Tartrate 25 Mg Tab 12.5 Mg PO BID Lasix (Furosemide) 20 Mg Tab 20 Mg PO DAILY Cranberry Urinary Comfort (Vitamins C & E) 1 Cap 1 Cap PO BID Warfarin 4 Mg Tab 4 Mg PO DAILY Warfarin 2 Mg Tab 2 Mg PO DAILY Aspirin 81 Mg Chew 81 Mg CHEW DAILY Coumadin 4 mg (Warfarin Sodium) Warfarin Sodium 4 mg Tab 4 Mg PO DIRECTED /// Coumadin (Warfarin Sod) 2 Mg Tab 2 Mg PO DIRECTED // Cranberry (Cranberry-Vitamin C-Vitamin E) Cap 1 Cap PO DAILY Ultram (Tramadol HCl) 50 Mg Tab 50 Mg PO Q6HR FOR PAIN Aspirin 81 mg chewable (Aspirin) 81 Mg Chw 162 Mg PO DAILY Hctz (Hydrochlorothiazide) 25 Mg Tab 25 Mg PO DAILY Norvasc (Amlodipine Besylate) 10 Mg Tab 10 Mg PO DAILY KCl 10 Meq Cap (Potassium Chloride) 10 Meq Capcr 15 Meq PO DIRECTED S/// Active Ordered Medications Current Medications Medications (Trade) Dose Ordered Sig/Fany Route PRN Reason Start Time Stop Time Status Last Admin Dose Admin Pantoprazole Sodium 80 mg/ Sodium Chloride 100 ml @ 10 mls/hr Q10H IV 03/09/17 23:11 03/11/17 18:04 Sodium Chloride (NS Flush) 2 ml UNSCH PRN IV FLUSH FLUSH AFTER USING IV ACCESS 03/10/17 02:00 Sodium Chloride (NS Flush) 2 ml BID IV FLUSH 03/10/17 09:00 03/10/17 21:00 Amlodipine Besylate (Norvasc) 5 mg HS PO 03/10/17 21:00 Future Hold Furosemide (Lasix) 20 mg DAILY PO 03/10/17 09:00 Future Hold Metoprolol Tartrate (Lopressor) 12.5 mg BID PO 03/10/17 09:00 Future Hold Potassium Chloride (KCl) 10 meq DAILY PO 03/10/17 09:00 Future Hold Tramadol HCl (Ultram) 50 mg Q4H PRN PO PAIN 03/10/17 03:45 Future Hold Ondansetron HCl (Zofran Inj) 4 mg Q6HR PRN IV PUSH NAUSEA OR VOMITING 03/10/17 04:00 Lactated Ringer's 1,000 ml @ 30 mls/hr Q24H PRN IV SEE LABEL COMMENTS 03/10/17 10:00 03/13/17 09:59 Sodium Chloride 500 ml @ 30 mls/hr [id number] PRN IV SEE LABEL COMMENTS 03/10/17 10:00 03/13/17 09:59 Metoprolol Tartrate (Lopressor) 25 mg [employer] PRN PO SEE LABEL COMMENTS 03/10/17 10:00 03/13/17 09:59 Povidone Iodine (Betadine 5% Antisepsis Kit) 1 applic [employer] PRN EACH NARE SEE LABEL COMMENTS 03/10/17 10:00 03/13/17 09:59 Chlorhexidine Gluconate (Chlorhexidine 2% Cloth) 3 pack [employer] PRN TOPICAL SEE LABEL COMMENTS 03/10/17 10:00 03/13/17 09:59 Family History No family history of coronary artery disease or diabetes mellitus Social History Quit smoking 50 years ago. No alcohol the past 3 years. Denies illicit drugs. Physical Exam Vital Signs Vital Signs Date Time Temp Pulse Resp B/P (MAP) Pulse Ox O2 Delivery O2 Flow Rate FiO2 03/11/17 16:00 97.7 104 20 127/55 (79) 95 03/11/17 15:00 81 03/11/17 12:00 98.8 79 20 129/68 (88) 97 03/11/17 08:00 99.1 80 20 147/57 (87) 97 03/11/17 07:00 98 Room Air 03/11/17 07:00 86 03/11/17 04:00 98.9 84 20 118/64 (82) 97 03/11/17 00:00 98.4 80 18 143/63 (89) 98 03/10/17 23:00 76 Physical Exam GENERAL: Elderly appearing male lying in bed in moderate distress SKIN: No rashes, ecchymoses or lesions. Cool and dry. HEAD: Atraumatic. Normocephalic. No temporal or scalp tenderness. EYES: Pupils equal round and reactive. Extraocular motions intact. No scleral icterus. No injection or drainage. ENT: Nose without bleeding, purulent drainage or septal hematoma. Throat without erythema, tonsillar hypertrophy or exudate. Uvula midline. Airway patent. NG tube in place draining zoe blood. NECK: Trachea midline. No JVD or lymphadenopathy. Supple, nontender, no meningeal signs. CARDIOVASCULAR: Regular rate and rhythm without murmurs, gallops, or rubs. RESPIRATORY: Clear to auscultation. Breath sounds equal bilaterally. No wheezes , rales, or rhonchi. GASTROINTESTINAL: Abdomen soft, non-tender, nondistended. No hepato-splenomegaly , or palpable masses. No guarding. MUSCULOSKELETAL: Extremities without clubbing, cyanosis, or edema. No joint tenderness, effusion, or edema noted. No calf tenderness. Negative Homans sign bilaterally. NEUROLOGICAL: Awake and alert. Cranial nerves II through XII intact. Motor and sensory grossly within normal limits. Normal speech. Laboratory Laboratory Tests Test 03/11/17 04:25 03/11/17 18:59 White Blood Count 13.6 8.3 Red Blood Count 2.54 2.15 Hemoglobin 7.7 6.4 Hematocrit 22.8 19.5 Mean Corpuscular Volume 89.6 90.7 Mean Corpuscular Hemoglobin 30.1 29.8 Mean Corpuscular Hemoglobin Concent 33.5 32.8 Red Cell Distribution Width 15.6 15.6 Platelet Count 119 110 Mean Platelet Volume 8.8 8.8 Neutrophils (%) (Auto) 79.2 76.1 Lymphocytes (%) (Auto) 12.0 15.5 Monocytes (%) (Auto) 8.3 7.3 Eosinophils (%) (Auto) 0.3 0.8 Basophils (%) (Auto) 0.2 0.3 Neutrophils # (Auto) 10.8 6.3 Lymphocytes # (Auto) 1.6 1.3 Monocytes # (Auto) 1.1 0.6 Eosinophils # (Auto) 0.0 0.1 Basophils # (Auto) 0.0 0.0 CBC Comment DIFF FINAL DIFF FINAL Differential Comment Prothrombin Time 19.7 Prothromb Time International Ratio 1.7 Blood Urea Nitrogen 41 Creatinine 1.21 Random Glucose 108 Total Protein 5.2 Calcium Level 7.4 Sodium Level 149 Potassium Level 3.7 Chloride Level 116 Carbon Dioxide Level 25.0 Anion Gap 8 Estimat Glomerular Filtration Rate 57 Protein Corrected Calcium 8.5 Result Diagram: 03/11/17 1859 03/11/17 0425 Assessment and Plan Assessment and Plan Upper GI bleed/hematemesis - Hemorrhagic gastritis - Continue Protonix IV twice a day - Gastroenterology appreciated - Serial H&H - Transfuse for hemoglobin less than 7 Atrial fibrillation - Holding Coumadin - Rate controlled - Resume metoprolol when hemodynamically stable - Resume Coumadin when okay by GI Hypertension - Currently normotensive - Hold diuretics while in the ICU - Resume metoprolol and Norvasc when blood pressure stable CHF - Last echo done 04/13/14 showed an EF of 35-40% - While nothing by mouth Gentle IV fluid hydration - Monitor for signs of volume overload CHELY - BUN/creatinine 70/1.69 on admission - Baseline 1.1 - IV fluid hydration - Monitor electrolytes and creatinine as well as urine output DVT GI prophylaxis - Teds SCDs - Protonix IV twice a day - Pharmacological DVT prophylaxis due to GI bleed Critical Care: The total critical care time was 35 minutes. Time to perform other separately billable procedures was not included in the critical care time. Jae Baltazar MD Mar 11, 2017 8:12 pm
[2017-03-11] MEDS ORDERED: diphenhydrAMINE HCL 50 MG/ML VIAL IM PRN (20:15)
[2017-03-11] MEDS: PANTOPRAZOLE SODIUM 40 MG VIAL IV PUSH SCH (23:46)
[2017-03-12] VITALS (13 sets, daily range): BP systolic 112–129; BP diastolic 51–73; PULSE 48–108; RESP 17–29; TEMP 95.7–98.7; O2SAT 91–99
[2017-03-12 01:40] LABS: BICARBONATE 25.9 MEQ/L (21.0-32.0); POTASSIUM 3.5 MEQ/L (3.5-5.1)
[2017-03-12 02:12] LABS: CALCIUM-PROTEIN CORRECTED 8.6 MG/DL (8.5-10.1)
[2017-03-12] MEDS ORDERED: MAGNESIUM CITRATE SOLN 300 ML BTL PO ONE (07:30)
--- NOTE | 2017-03-12 07:42 | HHI.GIFU ---
Subjective Remarks Resting in bed. Had 4 bloody stools with dark maroon colored blood yesterday. HH dropped last night and he received 2 units of blood. No further bleeding so far today. (Miracle Edgar) Objective Vitals I&O Vital Signs Date Time Temp Pulse Resp B/P (MAP) Pulse Ox O2 Delivery O2 Flow Rate FiO2 03/12/17 04:00 98.3 48 17 116/55 (75) 91 03/12/17 02:03 98.4 03/12/17 01:48 98.3 03/12/17 00:57 98.5 03/12/17 00:05 98.2 03/12/17 00:00 98.7 70 20 122/51 (74) 95 03/11/17 23:00 61 03/11/17 20:00 98.7 86 21 170/67 (101) 93 03/11/17 16:00 97.7 104 20 127/55 (79) 95 03/11/17 15:00 81 03/11/17 12:00 98.8 79 20 129/68 (88) 97 03/11/17 08:00 99.1 80 20 147/57 (87) 97 I/O 03/11/17 03/11/17 03/11/17 03/12/17 03/12/17 03/12/17 07:00 15:00 23:00 07:00 15:00 23:00 Intake Total 1060 ml 1225 ml 1720 ml Output Total 654 ml 754 ml 750 ml Balance 406 ml 471 ml 970 ml Intake Oral 960 ml 1180 ml 120 ml IV Total 100 ml 45 ml Packed Cells 800 ml Blood Product IV Normal Saline Flush 800 ml Output Urine Total 650 ml 750 ml 750 ml Stool Total 4 ml 4 ml # Bowel Movements 1 Laboratory Laboratory Tests Test 03/11/17 18:59 03/12/17 00:27 White Blood Count 8.3 Red Blood Count 2.15 Hemoglobin 6.4 Hematocrit 19.5 Mean Corpuscular Volume 90.7 Mean Corpuscular Hemoglobin 29.8 Mean Corpuscular Hemoglobin Concent 32.8 Red Cell Distribution Width 15.6 Platelet Count 110 Mean Platelet Volume 8.8 Neutrophils (%) (Auto) 76.1 Lymphocytes (%) (Auto) 15.5 Monocytes (%) (Auto) 7.3 Eosinophils (%) (Auto) 0.8 Basophils (%) (Auto) 0.3 Neutrophils # (Auto) 6.3 Lymphocytes # (Auto) 1.3 Monocytes # (Auto) 0.6 Eosinophils # (Auto) 0.1 Basophils # (Auto) 0.0 CBC Comment DIFF FINAL Differential Comment Blood Urea Nitrogen 20 Creatinine 0.94 Random Glucose 98 Total Protein 4.9 Calcium Level 7.4 Sodium Level 149 Potassium Level 3.5 Chloride Level 117 Carbon Dioxide Level 25.9 Anion Gap 6 Estimat Glomerular Filtration Rate 77 Protein Corrected Calcium 8.6 Imaging Last Impressions Abdomen/Pelvis CT 03/10/17 0000 Signed Impressions: Service Date/Time: February 04:42 - CONCLUSION: 1. Thickening versus lack of distention seen in the transverse and descending colon. Colitis in these regions could be considered. 2. Colonic diverticula with hypertrophy. Significant surrounding inflammatory change is not seen. Jeanmarie Nicole MD Chest X-Ray 03/09/17 2311 Signed Impressions: Service Date/Time: Thursday, March 09, 2017 23:16 - CONCLUSION: No acute disease. Jeanmarie Nicole MD Physical Exam HEENT: Normocephalic; atraumatic; no jaundice. CHEST: CTA CARDIAC: Irregular ABDOMEN: Soft, nondistended, nontender; no hepatosplenomegaly; bowel sounds are present in all four quadrants. EXTREMITIES: Left sided weakness/contractures SKIN: Normal; no rash; no jaundice. MOTTLER OPERATOR: Alert and oriented, (Miracle Edgar) Assessment and Plan Plan ASSESSMENT: - GIB. hematemesis, hematochezia. Pt on coumadin for afib (last took 03/09 at 5pm). Started having nausea/vomiting with large amounts of red blood and clots last night at 5pm. S/P EGD (03/10/17)----> 1. Gastritis antrum- biopsy NGT trauma in stomach esophagitis distal esophagus-biopsy 2. Retroflexed views revealed a hiatal hernia. No further hematemesis. CT Scan abdomen and pelvis without IV contrast (03/11/17)---> Thickening versus lack of distention seen in the transverse and descending colon. Colitis in these regions could be considered. Colonic diverticula with hypertrophy. Significant surrounding inflammatory change is not seen. Nurse reports that he had 4 bloody bowel movements yesterday with dark maroon blood. HH dropped 6.4/19.5. Received 2 units PRBC overnight. Protonix 40mg IV BID. - Anemia, acute blood loss. S/P 4 units of blood. HH dropped last night to 6.4 /19.5. Received 2 units of PRBC, has not been rechecked this am. - Possible colitis. CT with thickening vs. lack of distention seen in transverse and descending colon. Send for CDiff. - Coagulopathy, chronic anticoagulation with Coumadin. Took his coumadin last 03/09 at 5pm. INR 2.6. Give 2 units of FFP and Vitamin K. - CHELY, secondary to blood loss. Labs today - Atrial fibrillation with hx CVA/TIA. On Coumadin at home. Rate controlled - HTN, Degenerative disc disease, recurrent UTIs. per attending. 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 PLAN: - NPO except meds - Stat bleeding scan - Stat CBC, CMP - H/H q6h - Transfuse as necessary - Protonix with BID dosing - Hold Coumadin - Magnesium Citrate x 1 - Monitor H&H - CBC, BMP in a.m. - Supportive care - Further recommendations to follow based on results of above - Possible flexible sigmoidoscopy later in day depending on results of above - Pt seen and examined by Dr. Peters and myself and this note is written on her behalf (Miracle Edgar) Physician Comments gi bleeding scan negative clear liquids colonoscopy if further drop in hb (Ellen Peters MD) Miracle Egdar Mar 12, 2017 07:42 Ellen Peters MD Mar 12, 2017 19:27
[2017-03-12] MEDS: SODIUM CHLORIDE 0.9% FLUSH 10 ML FLUSH IV FLUSH SCH ×2 (08:24→20:35)
[2017-03-12 09:15] LABS: AUTOMATED NEUTROPHIL # 7.8 TH/MM3 (1.8-7.7); BASOPHIL % 0.3 % (0.0-2.0); EOSINOPHIL # 0.1 TH/MM3 (0-0.4); EOSINOPHIL % 1.2 % (0.0-4.0); HEMATOCRIT 34.4 % (39.0-51.0); HEMO FLAGS DIFF FINAL; LYMPH % 16.3 % (9.0-44.0); LYMPHOCYTE # 1.8 TH/MM3 (1.0-4.8); MEAN CELL VOLUME 89.3 FL (80.0-100.0); MEAN CORPUSCULAR HEMOGLOBIN 29.7 PG (27.0-34.0); MEAN CORPUSCULAR HGB CONC 33.3 % (32.0-36.0); MONO % 9.3 % (0.0-8.0); NEUT % 72.9 % (16.0-70.0); PLATELET COUNT 132 TH/MM3 (150-450); RED BLOOD COUNT 3.85 MIL/MM3 (4.50-5.90); RED CELL DISTRIBUTION WIDTH 15.3 % (11.6-17.2); WHITE BLOOD COUNT 10.8 TH/MM3 (4.0-11.0)
--- NOTE | 2017-03-12 13:29 | RADRPT ---
EXAM DATE/TIME: 03/12/2017 09:36 [facility] COMPARISON: No previous studies available for comparison. INDICATIONS : Rectal bleed DOSE: 21.3 mCi Tc99m Ultratag labeled red blood cells IV IMAGIN hrs MEDICAL HISTORY : Hypertension. Cerebrovascular disease. Afib. TIA SURGICAL HISTORY : Total knee replacement, left. Hip. ENCOUNTER: Initial ACUITY: 1 day PAIN SCALE: 0/10 LOCATION: Bilateral lower quadrant TECHNIQUE: Following the modified in vitro labeling of autologous red cells, dynamic continuous images were acqu ired for the specified interval. FINDINGS: BIODISTRIBUTION: There is a very good labeling of red cells without significant uptake in the gastric wall. There is good delineation of the blood pool of the spleen and abdominal vessels. BLEEDING: No episodes of active GI bleeding are observed during specified interval of continuous observation. CONCLUSION: 1. No active GI bleed identified. Andres Montenegro MD on March 12, 2017 at 13:26 Board Certified Radiologist. This report was verified electronically.
--- NOTE | 2017-03-12 13:34 | HHI.CCPN ---
Subjective Remarks/Hospital Course 81-year-old male with a past medical history significant for A. fib, anticoagulated on Coumadin, previous TIA, hypertension and degenerative disc disease presents to the emergency department for evaluation of hematemesis. He underwent EGD by gastroenterology with findings of hiatal hernia and gastritis. Recommendations were to admit to ICU for observation overnight with anti- reflex medications. The biopsy results that was performed during the procedure will be discussed with the patient as an outpatient in 2 weeks. 03/12: Stable Hgb and BP today. CHELY resolved. Tag cell study negative, GI appears to plan sigmoidoscopy. We will keep him on clear liquids. Objective Vital Signs Date Time Temp Pulse Resp B/P (MAP) Pulse Ox O2 Delivery O2 Flow Rate FiO2 03/12/17 04:00 98.3 48 17 116/55 (75) 91 03/11/17 07:00 Room Air 03/10/17 10:45 2 Intake and Output 03/12/17 03/12/17 03/13/17 08:00 16:00 00:00 Intake Total 1470 ml Output Total 750 ml Balance 720 ml Result Diagram: 03/12/17 0850 03/12/17 0027 Objective Remarks GENERAL: Elderly appearing male. HEAD: Atraumatic. Normocephalic. EYES: Pupils equal round and reactive. Extraocular motions intact. No scleral icterus. No injection or drainage. NECK: Trachea midline. Supple, nontender, no meningeal signs. Airway widely patent. CARDIOVASCULAR: Irreg, Irreg. No gallops, or rubs. No JVD. RESPIRATORY: Clear. Breath sounds equal bilaterally. No wheezes, rales, or rhonchi. GASTROINTESTINAL: Abdomen soft, non-tender, nondistended. No guarding. BS active. MUSCULOSKELETAL: Extremities without clubbing, cyanosis, or edema. Well perfused. NEUROLOGICAL: Awake and alert. Motor and sensory grossly within normal limits. Normal speech. Conversant. A/P Assessment and Plan Upper GI bleed/hematemesis - Hemorrhagic gastritis - Continue Protonix IV twice a day - Gastroenterology appreciated - Serial H&H - Transfuse for hemoglobin less than 7 Atrial fibrillation - Holding Coumadin - Rate controlled - Resume metoprolol when hemodynamically stable - Resume Coumadin when okay by GI Hypertension - Currently normotensive - Hold diuretics while in the ICU - Resume metoprolol and Norvasc when blood pressure stable CHF - Last echo done 04/13/14 showed an EF of 35-40% - While nothing by mouth Gentle IV fluid hydration - Monitor for signs of volume overload CHELY - BUN/creatinine 70/1.69 on admission - Baseline 1.1 - IV fluid hydration - Monitor electrolytes and creatinine as well as urine output DVT GI prophylaxis - Teds SCDs - Protonix IV twice a day - Pharmacological DVT prophylaxis due to GI bleed Overall impression: Acceptable hemodynamics. Tagged red cell study today to locate source. Karan Price MD Mar 12, 2017 13:34
[2017-03-12] MEDS: PANTOPRAZOLE SODIUM 40 MG VIAL IV PUSH SCH ×2 (13:59→22:07)
--- NOTE | 2017-03-12 16:44 | EKG ---
Date Performed: 03/11/2017 Time Performed: 23:23:38 PTAGE: 81 years EKG: Sinus rhythm with bigeminal PVCs with 1st degree A-V block. Possible right atrial abnormality Left bundle branch block Possible inferior infarct - age undetermined Anteroseptal ST-T changes suggest myocardial injur y/ischemia Abnormal ECG Compared to PREVIOUS TRACING , the patient is now having bigeminal PVCs. PREVIOUS TRACING 03/10/2017 08.28.32 DOCTOR: Aracelis Osborn Interpretating Date/Time 03/12/2017 16:44:12
[2017-03-12 18:50] LABS: HEMATOCRIT 28.6 % (39.0-51.0)
[2017-03-12 18:52] LABS: REVIEW FLAG FINAL
[2017-03-12 18:58] LABS: BICARBONATE 22.6 MEQ/L (21.0-32.0); POTASSIUM 3.7 MEQ/L (3.5-5.1)
[2017-03-12 19:09] LABS: CALCIUM-PROTEIN CORRECTED 8.2 MG/DL (8.5-10.1)
[2017-03-13] VITALS: BP 137/53; PULSE 65; RESP 17; TEMP 97.4; O2SAT 95
[2017-03-13 00:32] LABS: REVIEW FLAG FINAL
[2017-03-13 04:00] VITALS: BP 136/68; PULSE 61; RESP 18; TEMP 96.4; O2SAT 96
[2017-03-13 06:46] LABS: HEMATOCRIT 29.8 % (39.0-51.0); REVIEW FLAG FINAL
[2017-03-13 08:00] VITALS: BP 122/54; PULSE 63; RESP 14; TEMP 97.1; O2SAT 98
[2017-03-13] MEDS: SODIUM CHLORIDE 0.9% FLUSH 10 ML FLUSH IV FLUSH SCH (08:11)
[2017-03-13] MEDS: PANTOPRAZOLE SODIUM 40 MG VIAL IV PUSH SCH (11:58)
[2017-03-13 12:00] VITALS: BP 112/52; PULSE 45; RESP 18; TEMP 96.5; O2SAT 96
[2017-03-13] MEDS ORDERED: traMADol HCL 50 MG TAB PO ONE (12:15)
--- NOTE | 2017-03-13 14:03 | HHI.PR ---
Subjective Remarks Follow-up for GI bleeding Patient denies any bloody bowel movements or vomiting blood. He stated that he is doing well. Patient very anxious to go home. His is at the bedside during the interview. concerned that patient unable to ambulate on his own since required 2 assistants to the bathroom this morning. Discussed with patient's nurse in regards to patient she also stated that patient had no bloody bowel movements and he has difficulty ambulating on his own. Objective Vitals Vital Signs Date Time Temp Pulse Resp B/P (MAP) Pulse Ox O2 Delivery O2 Flow Rate FiO2 03/13/17 12:00 96.5 45 18 112/52 (72) 96 03/13/17 08:00 97.1 63 14 122/54 (76) 98 03/13/17 04:00 96.4 61 18 136/68 (90) 96 03/13/17 00:00 97.4 65 17 137/53 (81) 95 03/12/17 21:31 95.7 81 17 118/73 (88) 97 03/12/17 20:00 98.4 88 18 112/55 (74) 98 03/12/17 18:00 79 03/12/17 16:00 89 03/12/17 16:00 98.0 96 20 128/54 (78) 99 I/O 03/12/17 03/12/17 03/12/17 03/13/17 03/13/17 03/13/17 07:00 15:00 23:00 07:00 15:00 23:00 Intake Total 1720 ml 720 ml 240 ml Output Total 750 ml 980 ml 200 ml Balance 970 ml -260 ml 40 ml Intake Oral 120 ml 720 ml 240 ml Packed Cells 800 ml Blood Product IV Normal Saline Flush 800 ml Output Urine Total 750 ml 980 ml 200 ml # Voids 2 # Bowel Movements 1 3 Result Diagram: 03/13/17 0557 03/12/17 1750 Objective Remarks GENERAL: in NAD CARDIOVASCULAR: Regular rate and rhythm without murmurs, gallops, or rubs. RESPIRATORY: Breath sounds equal bilaterally. No accessory muscle use. GASTROINTESTINAL: Abdomen soft, non-tender, nondistended. MUSCULOSKELETAL: No cyanosis, or edema. Medications and IVs Current Medications Ondansetron HCl (Zofran Inj) 4 mg ONCE ONCE IVP Last administered on 23:26; Start 03/09/17 at 23:15; Stop 03/09/17 at 23:16; Status DC Sodium Chloride 1,000 ml @ 1,000 mls/hr Q1H IV Last administered on 23:26; Start 03/09/17 at 23:11; Stop 03/10/17 at 00:10; Status DC Sodium Chloride (NS Flush) 2 ml UNSCH PRN IVF FLUSH AFTER USING IV ACCESS; Start 03/09/17 at 23:15; Stop 03/10/17 at 03:40; Status DC Pantoprazole Sodium 80 mg/ Sodium Chloride 35 ml @ 420 mls/hr Q5M ONCE IV Last administered on 03/09/17 23:27; Start 03/09/17 at 23:11; Stop 03/09/17 at 23:15; Status DC Pantoprazole Sodium 80 mg/ Sodium Chloride 100 ml @ 10 mls/hr Q10H IV Last administered on 03/11/17 18:04; Start 03/09/17 at 23:11; Stop 03/11/17 at 22 :36; Status DC Sodium Chloride (NS Flush) 2 ml UNSCH PRN IV FLUSH FLUSH AFTER USING IV ACCESS ; Start 03/10/17 at 02:00 Sodium Chloride (NS Flush) 2 ml BID IV FLUSH Last administered on 03/13/17 08: 11; Start 03/10/17 at 09:00 Amlodipine Besylate (Norvasc) 5 mg HS PO ; Start 03/10/17 at 21:00; Status Future Hold Furosemide (Lasix) 20 mg DAILY PO ; Start 03/10/17 at 09:00; Status Future Hold Metoprolol Tartrate (Lopressor) 12.5 mg BID PO ; Start 03/10/17 at 09:00; Status Future Hold Potassium Chloride (KCl) 10 meq DAILY PO ; Start 03/10/17 at 09:00; Status Future Hold Tramadol HCl (Ultram) 50 mg Q4H PRN PO PAIN; Start 03/10/17 at 03:45; Status Future hold Ondansetron HCl (Zofran Inj) 4 mg Q6HR PRN IV PUSH NAUSEA OR VOMITING; Start 03/10/17 at 04:00 Sodium Chloride 1,000 ml @ 999 mls/hr BOLUS ONCE IV Last administered on 04:15; Start 03/10/17 at 04:15; Stop 03/10/17 at 05:15; Status DC Sodium Chloride 1,000 ml @ 75 mls/hr [id number] IV Last administered on 10:23; Start 03/10/17 at 04:30; Stop 03/10/17 at 14:28; Status DC Sodium Chloride 250 ml @ 15 mls/hr ONCE ONCE IV ; Start 03/10/17 at 05:30; Stop 03/10/17 at 09:45; Status DC Furosemide (Lasix Inj) 20 mg ONCE ONCE IV PUSH Last administered on 09:15; Start 03/10/17 at 05:30; Stop 03/10/17 at 05:31; Status DC Sodium Chloride 250 ml @ 15 mls/hr ONCE ONCE IV Last administered on 08:45; Start 03/10/17 at 07:15; Stop 03/10/17 at 23:54; Status DC Phytonadione (Vitamin K Inj) 10 mg ONCE ONCE SQ Last administered on 14:41; Start 03/10/17 at 07:15; Stop 03/10/17 at 08:22; Status DC Lactated Ringer's 1,000 ml @ 30 mls/hr Q24H PRN IV SEE LABEL COMMENTS; Start 03/10/17 at 10:00; Stop 03/13/17 at 09:59; Status DC Sodium Chloride 500 ml @ 30 mls/hr [id number] PRN IV SEE LABEL COMMENTS; Start at 10:00; Stop 03/13/17 at 09:59; Status DC Metoprolol Tartrate (Lopressor) 25 mg HOE WORKER PRN PO SEE LABEL COMMENTS; Start 03/10/17 at 10:00; Stop 03/13/17 at 09:59; Status DC Povidone Iodine (Betadine 5% Antisepsis Kit) 1 applic HOE WORKER PRN EACH NARE SEE LABEL COMMENTS; Start 03/10/17 at 10:00; Stop 03/13/17 at 09:59; Status DC Chlorhexidine Gluconate (Chlorhexidine 2% Cloth) 3 pack HOE WORKER PRN TOPICAL SEE LABEL COMMENTS; Start 03/10/17 at 10:00; Stop 03/13/17 at 09:59; Status DC Diphenhydramine HCl (Benadryl Inj) 50 mg STK-MED ONCE .ROUTE ; Start 03/10/17 at 09:59; Stop 03/10/17 at 10:00; Status DC Diphenhydramine HCl (Benadryl Inj) 50 mg STK-MED ONCE .ROUTE ; Start 03/10/17 at 10:01; Stop 03/10/17 at 10:02; Status DC Diatrizoate Meglum/ Diatrizoate Sod ( Gastroview Liq) 18 ml ONCE ONCE PO Last administered on 03/10/17 14:44; Start 03/10/17 at 12:30; Stop 03/10/17 at 12:31; Status DC Miscellaneous Information ALL NURSING DEPARTME... UNSCH PRN .XX SEE LABEL COMMENTS; Start 03/10/17 at 10:16; Stop 03/11/17 at 10:15; Status DC Diatrizoate Meglum/ Diatrizoate Sod ( Gastroview Liq) 18 ml NOW ONCE PO Last administered on 03/11/17 02:20; Start 03/10/17 at 21:45; Stop 03/10/17 at 21:46; Status DC Diphenhydramine HCl (Benadryl Inj) 25 mg Q4H PRN IM allergy and prior transfussion Last administered on 03/11/17 23:45; Start 03/11/17 at 20:15 Pantoprazole Sodium (Protonix Inj) 40 mg Q12H IV PUSH Last administered on 03/13 11:58; Start 03/11/17 at 23:00; Stop 03/13/17 at 12:00; Status DC Magnesium Citrate (Citroma Liq) 300 ml ONCE ONCE PO Last administered on 08:23; Start 03/12/17 at 07:30; Stop 03/12/17 at 07:31; Status DC Pantoprazole Sodium (Protonix) 40 mg DAILY PO ; Start 03/14/17 at 09:00 Tramadol HCl (Ultram) 50 mg ONCE ONCE PO Last administered on 03/13/17 12:41 ; Start 03/13/17 at 12:15; Stop 03/13/17 at 12:25; Status DC A/P Assessment and Plan Upper GI bleed/hematemesis - secondary hemorrhagic gastritis - Patient currently on Protonix. Hemoglobin has been stable and no active GI bleed. Bleeding scan was negative. -Discussed with GI nurse practitioner Juanita Lee and stated that patient is cleared for discharge and okay to restart Coumadin. Atrial fibrillation - Rates control. Per GI can restart Coumadin. Will restart Coumadin. Hypertension - Currently normotensive - Diuretic, amlodipine and metoprolol held due to patient being normotensive. Will restart low dose of metoprolol since patient does have atrial fibrillation. CHF - Last echo done 04/13/14 showed an EF of 35-40% CHELY, resolved. - BUN/creatinine 70/1.69 on admission DVT GI prophylaxis - Teds SCDs Discharge Planning Patient requires assistance with ambulation so will need physical therapist evaluate patient for safe discharge. Discussed with patient's nurse. Yoli Wilcox MD Mar 13, 2017 14:03
[2017-03-13] MEDS ORDERED: PILL SPLITTER OTHER PRN (14:15)
[2017-03-13] MEDS ORDERED: PANT40TA3 PO (14:32)
--- NOTE | 2017-03-13 14:34 | HHI.DS ---
Discharge Summary Admission Date Mar 10, 2017 at 01:23 Discharge Date: Mar 13, 2017 Admitting Diagnosis upper GI bleed on Coumadin, anemia (1) GI bleed ICD Code: K92.2 - Gastrointestinal hemorrhage, unspecified Diagnosis: Principal (2) Chronic anticoagulation ICD Code: Z79.01 - salvage determiner (current) use of anticoagulants Diagnosis: Principal (3) CKD (chronic kidney disease), stage III ICD Code: N18.3 - CKD (chronic kidney disease), stage III Diagnosis: Secondary Status: Chronic (4) Acute renal injury ICD Code: N17.9 - Acute renal injury Diagnosis: Principal Status: Acute (5) Gastritis ICD Code: K29.70 - Gastritis, unspecified, without bleeding Diagnosis: Principal Procedures See hospital course Brief History - From Admission 81-year-old male with a past medical history significant for A. fib, anticoagulated on Coumadin, previous TIA, hypertension and degenerative disc disease presents to the emergency department for evaluation of hematemesis. The patient states he started vomiting blood approximately 5 PM. The patient reports multiple episodes of bloody emesis mostly dark with bloody clots. He complains of lightheadedness and dizziness. Denies any chest pain, shortness of breath or abdominal pain. H&H 10.5/33.6 on arrival to the emergency department. BUN/creatinine 70/1.69 (baseline 1.1). INR 2.6. Pulse 89, respiratory rate 20, BP 126/89, pulse ox 98% on room air. CBC/BMP: 03/13/17 0557 03/12/17 1750 Significant Findings Laboratory Tests Test 03/10/17 14:41 03/10/17 20:05 03/11/17 04:25 03/11/17 18:59 White Blood Count 17.2 TH/MM3 (4.0-11.0) 13.6 TH/MM3 (4.0-11.0) Red Blood Count 2.78 MIL/MM3 (4.50-5.90) 2.54 MIL/MM3 (4.50-5.90) 2.15 MIL/MM3 (4.50-5.90) Hemoglobin 8.1 GM/DL (13.0-17.0) 7.7 GM/DL (13.0-17.0) 7.7 GM/DL (13.0-17.0) 6.4 GM/DL (13.0-17.0) Hematocrit 25.0 % (39.0-51.0) 23.2 % (39.0-51.0) 22.8 % (39.0-51.0) 19.5 % (39.0-51.0) Platelet Count 131 TH/MM3 (150-450) 119 TH/MM3 (150-450) 110 TH/MM3 (150-450) Neutrophils (%) (Auto) 80.1 % (16.0-70.0) 79.2 % (16.0-70.0) 76.1 % (16.0-70.0) Monocytes (%) (Auto) 9.5 % (0.0-8.0) 8.3 % (0.0-8.0) Neutrophils # (Auto) 13.8 TH/MM3 (1.8-7.7) 10.8 TH/MM3 (1.8-7.7) Monocytes # (Auto) 1.6 TH/MM3 (0-0.9) 1.1 TH/MM3 (0-0.9) Prothrombin Time 20.0 SEC (9.8-11.6) 19.7 SEC (9.8-11.6) Blood Urea Nitrogen 63 MG/DL (7-18) 41 MG/DL (7-18) Creatinine 1.44 MG/DL (0.60-1.30) Total Protein 5.5 GM/DL (6.4-8.2) 5.2 GM/DL (6.4-8.2) Albumin 2.6 GM/DL (3.4-5.0) Calcium Level 7.5 MG/DL (8.5-10.1) 7.4 MG/DL (8.5-10.1) Alkaline Phosphatase 38 U/L (45-117) Sodium Level 152 MEQ/L (136-145) 149 MEQ/L (136-145) Chloride Level 119 MEQ/L (98-107) 116 MEQ/L (98-107) Estimat Glomerular Filtration Rate 47 ML/MIN (>89) 57 ML/MIN (>89) Random Glucose 108 MG/DL (74-106) Test 03/12/17 00:27 03/12/17 08:50 03/12/17 17:50 03/13/17 00:15 Blood Urea Nitrogen 20 MG/DL (7-18) Total Protein 4.9 GM/DL (6.4-8.2) 5.7 GM/DL (6.4-8.2) Calcium Level 7.4 MG/DL (8.5-10.1) 7.4 MG/DL (8.5-10.1) Sodium Level 149 MEQ/L (136-145) Chloride Level 117 MEQ/L (98-107) 115 MEQ/L (98-107) Estimat Glomerular Filtration Rate 77 ML/MIN (>89) 76 ML/MIN (>89) Red Blood Count 3.85 MIL/MM3 (4.50-5.90) Hemoglobin 11.4 GM/DL (13.0-17.0) 10.4 GM/DL (13.0-17.0) 10.6 GM/DL (13.0-17.0) Hematocrit 34.4 % (39.0-51.0) 28.6 % (39.0-51.0) 31.0 % (39.0-51.0) Platelet Count 132 TH/MM3 (150-450) Neutrophils (%) (Auto) 72.9 % (16.0-70.0) Monocytes (%) (Auto) 9.3 % (0.0-8.0) Neutrophils # (Auto) 7.8 TH/MM3 (1.8-7.7) Monocytes # (Auto) 1.0 TH/MM3 (0-0.9) Protein Corrected Calcium 8.2 MG/DL (8.5-10.1) Test 03/13/17 05:57 Hemoglobin 10.1 GM/DL (13.0-17.0) Hematocrit 29.8 % (39.0-51.0) Imaging Last Impressions GI Bleed Scan Nuclear Medicine 03/12/17 0000 Signed Impressions: Service Date/Time: Sunday, March 12, 2017 09:36 - CONCLUSION: 1. No active GI bleed identified. Andres Montenegro MD Abdomen/Pelvis CT 03/10/17 0000 Signed Impressions: Service Date/Time: February 04:42 - CONCLUSION: 1. Thickening versus lack of distention seen in the transverse and descending colon. Colitis in these regions could be considered. 2. Colonic diverticula with hypertrophy. Significant surrounding inflammatory change is not seen. Jeanmarie Nicole MD Chest X-Ray 03/09/17 8149 Signed Impressions: Service Date/Time: Thursday, March 09, 2017 23:16 - CONCLUSION: No acute disease. Jeanmarie Nicole MD PE at Discharge GENERAL: in NAD CARDIOVASCULAR: Regular rate and rhythm without murmurs, gallops, or rubs. RESPIRATORY: Breath sounds equal bilaterally. No accessory muscle use. GASTROINTESTINAL: Abdomen soft, non-tender, nondistended. MUSCULOSKELETAL: No cyanosis, or edema. Pt update on day of discharge Patient seen again after he was evaluated by physical therapist. He refused to go to any rehabilitation facility. Patient stated that he has a scooter that he usually rides on. He is very anxious to go home. I also went over patient' s medication list and asked him why he was on aspirin. He stated that he was put on aspirin for no reason. He denied any stroke, TIAs, coronary artery disease, or heart attack. He stated that his automatic embroidery machine tender did want him on the Coumadin. Patient also stated that he can get his INR check with his automatic embroidery machine tender as directed since this is where he gets his INR checked. I spoke to Juanita Lee GI nurse practitioner again who stated as okay to restart Coumadin and antiplatelets. Hospital Course This is an 81-year-old male on chronic anticoagulation admitted secondary to hematemesis Upper GI bleed/hematemesis -GI was consulted. Patient admitted in intensive care unit with supportive care. He had an EGD done which showed hemorrhagic gastritis. -Patient given IV fluids and IV Protonix. -He was given blood but had a reaction to transfusion in which a protocol was implemented but resolved quickly. Patient stated that he had a rash. He was asymptomatic at the time of discharge. -The last few days of his admission he did not have any active bleeding and his hemoglobin was stable. Patient also had a bleeding scan done which was negative. -By time of discharge GI stated okay to restart anticoagulants and antiplatelets. Atrial fibrillation - Rates control. -Initially Coumadin was held due to workup for GI bleed. By the time of discharge GI stated okay to restart Coumadin. patient given verbal and written directions to have his INR checked by his automatic embroidery machine tender in 2-3 days. He stated he understood. Hypertension - Currently normotensive - Diuretic, amlodipine and metoprolol held due to patient being normotensive but due to age of defibrillation and improvement in blood pressure metoprolol was restarted. -Patient told must see his automatic embroidery machine tender within 1 week to see if his other medication can be restarted. -From the patient's history its seems he was started on aspirin for primary prevention. Patient told to discontinue aspirin since he had a gastric hemorrhagic bleed and that there is more of an indication to restart Coumadin versus aspirin. Patient also told to discuss this with his automatic embroidery machine tender. CHF - Last echo done 04/13/14 showed an EF of 35-40% CHELY, resolved with IV fluids. Most likely secondary to hypoperfusion. - BUN/creatinine 70/1.69 on admission Pt Condition on Discharge: Stable Discharge Disposition: Disch w/ Home Health Serv Discharge Time: > 30 minutes Discharge Instructions DIET: Follow Instructions for: Heart Healthy Diet, Coumadin (Warfarin) Diet Activities you can perform: Regular-No Restrictions Follow up Referrals: Cardiology - 1 Week PCP Follow-up - 1 Week SNF/[facility]/ with [facility] New Medications: Pantoprazole (Pantoprazole) 40 Mg Tab 40 MG PO DAILY for gastritis, #30 TAB 0 Refills Continued Medications: Cod Liver Oil (Cod Liver Oil) 473 Ml Oil 600 MG PO DAILY Cranberry-Vitamin C-Vitamin E (Cranberry) Cap 1 CAP PO DAILY, CAP Furosemide (Lasix) 20 Mg Tab 20 MG PO DAILY, #30 TAB 0 Refills Garlic (Garlic) 200 Mg Tab 1000 MG PO DAILY Metoprolol Tartrate (Metoprolol Tartrate) 25 Mg Tab 12.5 MG PO BID, #60 TAB 0 Refills Multiple Vitamin (Multiple Vitamin) 1 Tab 1 TAB PO DAILY for Nutritional Supplement, TAB 0 Refills Oyster Shell (Calcium) 500 Mg Calcium (1250 Mg) Tab Potassium Chloride (KCl 10 Meq Cap) 10 Meq Capcr 15 MEQ PO DIRECTED, CAPCR S/M/W/F Potassium Chloride ER (Potassium Chloride ER) 10 Meq Cap 10 MEQ PO DAILY for Electrolyte Replacement, #30 CAP 0 Refills Tramadol (Tramadol) 50 Mg Tab 100 MG PO DAILY PRN for PAIN, TAB 0 Refills Tramadol Hcl (Ultram) 50 Mg Tab 50 MG PO Q6HR, TAB FOR PAIN Tramadol (Tramadol) 50 Mg Tab 50 MG PO HS PRN for PAIN, TAB 0 Refills Tramadol (Tramadol) 50 Mg Tab 50 MG PO Q4H PRN for PAIN, TAB 0 Refills Vitamins C & E (Cranberry Urinary Comfort) 1 Cap 1 CAP PO BID for Urinary Symptom Managemen, CAP 0 Refills Warfarin Sod (Coumadin) 2 Mg Tab 2 MG PO DIRECTED M// Warfarin Sodium (Coumadin 4 mg) Warfarin Sodium 4 mg Tab 4 MG PO DIRECTED, TAB ///S Discontinued Medications: Amlodipine (Amlodipine) 5 Mg Tab 5 MG PO HS for Blood Pressure Management, #30 TAB 0 Refills Aspirin (Aspirin) 81 Mg Chew 81 MG CHEW DAILY, TAB 0 Refills Aspirin 81 mg chewable (Aspirin 81 mg chewable) 81 Mg Chw 162 MG PO DAILY, CHW Hydrochlorothiazide (Hctz) 25 Mg Tab 25 MG PO DAILY, TAB Lisinopril (Lisinopril) 20 Mg Tab 20 MG PO DAILY, #30 TAB 0 Refills Metoprolol Tartrate 25 mg (Metoprolol Tartrate 25 mg) 25 Mg Tab 12.5 MG PO Q12 for Regulate Heart Beat, #60 TAB Norvasc (Norvasc) 10 Mg Tab 10 MG PO DAILY, TAB Warfarin (Warfarin) 2 Mg Tab 2 MG PO DAILY for Blood Clot Prevention, #30 TAB 0 Refills Warfarin (Warfarin) 4 Mg Tab 4 MG PO DAILY for Blood Clot Prevention, #30 TAB 0 Refills Yoli Wilcox MD Mar 13, 2017 14:34
--- NOTE | 2017-03-13 14:34 | HHI.DCPOC ---
Discharge Care Plan Diagnosis: (1) Upper GI bleed (2) Atrial fibrillation with rapid ventricular response (3) CKD (chronic kidney disease), stage III Goals to Promote Your Health * To prevent worsening of your condition and complications * To maintain your health at the optimal level Directions to Meet Your Goals Take your medications as prescribed Follow your dietary instruction Follow activity as directed Keep your appointments as scheduled Take your immunizations and boosters as scheduled If your symptoms worsen call your PCP, if no PCP go to Urgent Care Center or Emergency Room Smoking is Dangerous to Your Health. Avoid second hand smoke Call the 24-hour hour crisis hotline for domestic abuse at Yoli Wilcox MD Mar 13, 2017 14:34
--- NOTE | 2017-03-13 14:38 | HHI.FF ---
Face to Face Verification Diagnosis: (1) Chronic anticoagulation (2) Physical deconditioning (3) CKD (chronic kidney disease), stage III (4) Upper GI bleed Physical Therapy Order: Evaluate and Treat, Improve ambulation, Strength and gait training Occupational Therapy Order: Evaluate and Treat, Improve ADL, Gross motor coordination, Fine motor coordination Home Health Nursing Order: Medical education Signs/symptoms of disease process CHF education Medication education-adverse effect I have seen patient Burak Weeks on 03/13/17. My clinical findings support the need for the requested home health care services because: Ltd mobility - disease progression Deconditioned w/ increased weakness I certify that my clinical findings support that this patient is homebound because: Unsteady gait/balance Poor cardiac reserve Yoli Wilcox MD Mar 13, 2017 14:38
[2017-03-13] MEDS ORDERED: WARFARIN SOD 2 MG TAB PO SCH (16:00)
--- NOTE | 2017-03-13 17:19 | HHI.GIFU ---
Subjective Remarks Patient resting in bed Anxious to go home if safe from physical therapy standpoint Meds changed to by mouth Protonix May resume Coumadin (Juanita Lee) Objective Vitals I&O Vital Signs Date Time Temp Pulse Resp B/P (MAP) Pulse Ox O2 Delivery O2 Flow Rate FiO2 03/13/17 12:00 96.5 45 18 112/52 (72) 96 03/13/17 08:00 97.1 63 14 122/54 (76) 98 03/13/17 04:00 96.4 61 18 136/68 (90) 96 03/13/17 00:00 97.4 65 17 137/53 (81) 95 03/12/17 21:31 95.7 81 17 118/73 (88) 97 03/12/17 20:00 98.4 88 18 112/55 (74) 98 03/12/17 18:00 79 I/O 03/12/17 03/12/17 03/12/17 03/13/17 03/13/17 03/13/17 07:00 15:00 23:00 07:00 15:00 23:00 Intake Total 1720 ml 720 ml 240 ml Output Total 750 ml 980 ml 200 ml Balance 970 ml -260 ml 40 ml Intake Oral 120 ml 720 ml 240 ml Packed Cells 800 ml Blood Product IV Normal Saline Flush 800 ml Output Urine Total 750 ml 980 ml 200 ml # Voids 2 # Bowel Movements 1 3 Laboratory Laboratory Tests Test 03/12/17 17:50 03/13/17 00:15 03/13/17 05:57 Hemoglobin 10.4 10.6 10.1 Hematocrit 28.6 31.0 29.8 Blood Urea Nitrogen 14 Creatinine 0.95 Random Glucose 92 Total Protein 5.7 Calcium Level 7.4 Sodium Level 144 Potassium Level 3.7 Chloride Level 115 Carbon Dioxide Level 22.6 Anion Gap 6 Estimat Glomerular Filtration Rate 76 Protein Corrected Calcium 8.2 Imaging Last Impressions GI Bleed Scan Nuclear Medicine 03/12/17 0000 Signed Impressions: Service Date/Time: Sunday, March 12, 2017 09:36 - CONCLUSION: 1. No active GI bleed identified. Andres Montenegro MD Abdomen/Pelvis CT 03/10/17 0000 Signed Impressions: Service Date/Time: February 04:42 - CONCLUSION: 1. Thickening versus lack of distention seen in the transverse and descending colon. Colitis in these regions could be considered. 2. Colonic diverticula with hypertrophy. Significant surrounding inflammatory change is not seen. Jeanmarie Nicole MD Chest X-Ray 03/09/17 2311 Signed Impressions: Service Date/Time: Thursday, March 09, 2017 23:16 - CONCLUSION: No acute disease. Jeanmarie Nicole MD Physical Exam HEENT: Normocephalic; atraumatic; no jaundice. CHEST: CTA CARDIAC: Irregular ABDOMEN: Soft, nondistended, nontender; no hepatosplenomegaly; bowel sounds are present in all four quadrants. EXTREMITIES: Left sided weakness/contractures SKIN: Normal; no rash; no jaundice. RESOURCE COORDINATOR: Alert and oriented, anxious to go home (Juanita Lee) Assessment and Plan Plan ASSESSMENT: - GIB. hematemesis, hematochezia. Pt on coumadin for afib (last took 03/09 at 5pm). Started having nausea/vomiting with large amounts of red blood and clots last night at 5pm. S/P EGD (03/10/17)----> 1. Gastritis antrum- biopsy NGT trauma in stomach esophagitis distal esophagus-biopsy 2. Retroflexed views revealed a hiatal hernia. No further hematemesis. CT Scan abdomen and pelvis without IV contrast (03/11/17)---> Thickening versus lack of distention seen in the transverse and descending colon. Colitis in these regions could be considered. Colonic diverticula with hypertrophy. Patient has had no further active bleeding, no abdominal pain, vital signs are stable - Anemia, acute blood loss. Patient received multiple transfusions, hemoglobin stable on discharge - Possible colitis. CT with thickening vs. lack of distention seen in transverse and descending colon. - Coagulopathy, chronic anticoagulation with Coumadin. Okay per Dr. Peters to restart Coumadin on discharge - CHELY, secondary to blood loss. Labs today - Atrial fibrillation with hx CVA/TIA. On Coumadin at home. Rate controlled - HTN, Degenerative disc disease, recurrent UTIs. per attending. 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 PLAN: -Diet advanced to heart healthy - Protonix to by mouth dosing - A restart Coumadin - Supportive care - Further recommendations to follow based on results of above Planned for discharge today if okay with physical therapy for his safety Follow-up as outpatient in 2 weeks, GI - Pt seen and examined by Dr. Peters and myself and this note is written on her behalf (Juanita Lee) Juanita Lee Mar 13, 2017 17:19 Ellen Peters MD Mar 13, 2017 18:17
[2017-03-13] MEDS ORDERED: METOPROLOL TARTRATE 25 MG TAB PO SCH (21:00)
[2017-03-14] MEDS ORDERED: PANTOPRAZOLE SOD 40 MG DELAYED RELEASE TAB PO SCH (09:00)
== END 2017-03-13 16:23 | disposition home health service (06) | DRG 378 ==
LOC: NEPE 23:07 → NEDA 03-10 01:23 → N06A 03-10 02:50 → N03B 03-10 09:58 → N03A 03-10 13:15 → N07B 03-12 20:58
PROVIDERS: ADMIT Family Medicine; ATTEND Family Medicine
PROC: 30233N1 Transfusion of Nonautologous Red Blood Cells into Peripheral Vein, Percutaneous Approach (ICD-10-PCS; 2017-03-10)
PROC: 0DB38ZX Excision of Lower Esophagus, Via Natural or Artificial Opening Endoscopic, Diagnostic (ICD-10-PCS; 2017-03-10)
PROC: 0DB78ZX Excision of Stomach, Pylorus, Via Natural or Artificial Opening Endoscopic, Diagnostic (ICD-10-PCS; 2017-03-10)
PROC: 30233K1 Transfusion of Nonautologous Frozen Plasma into Peripheral Vein, Percutaneous Approach (ICD-10-PCS; principal; 2017-03-10 09:20)
DX: K29.71 Gastritis, unspecified, with bleeding (principal); I13.0 Hypertensive heart and chronic kidney disease with heart failure and stage 1 through stage 4 chronic kidney disease, or unspecified chronic kidney disease; N17.9 Acute kidney failure, unspecified; D68.9 Coagulation defect, unspecified; I48.91 Unspecified atrial fibrillation; N18.3 Chronic kidney disease, stage 3 (moderate); I50.9 Heart failure, unspecified; D62 Acute posthemorrhagic anemia; T80.89XA Other complications following infusion, transfusion and therapeutic injection, initial encounter; T45.515A Adverse effect of anticoagulants, initial encounter; K57.30 Diverticulosis of large intestine without perforation or abscess without bleeding; K44.9 Diaphragmatic hernia without obstruction or gangrene; K21.0 Gastro-esophageal reflux disease with esophagitis; M24.532 Contracture, left wrist; Z79.01 Long term (current) use of anticoagulants; Z86.73 Personal history of transient ischemic attack (TIA), and cerebral infarction without residual deficits; Z87.891 Personal history of nicotine dependence; Z96.652 Presence of left artificial knee joint
CPT/HCPCS: 36430; 71010; 74176; 78278; 80048; 80053; 81002; 83010; 83615; 84155; 85014; 85018; 85025; 85610; 85730; 86078; 86850; 86880; 86900; 86901; 86920; 86927; 88305; 88312; 93005; 96361; 96374; A9560; C9113; J1200; J1940; J2405; J3430; J7030; J7050; P9016; P9017; Q9963